=== PATIENT | male | born 1990 | race Caucasian/White ===

== ENCOUNTER 2016-11-03 10:59 | Inpatient (IN) | payer MEDICARE, OTHER ==
[~2016-11-03] VITALS: Ht 172.7 cm; Wt 59.0 kg
[~2016-11-03 10:59] MED LIST: AMITRIPTYLINE25 MG ORAL; COMPAZINE25 MG RECTAL; NORCO 5-325 TA1 EACH ORAL; SEROQUEL200 MG ORAL; ZANTAC150 MG ORAL; ZOFRAN4 M3 ORAL; ZOFRAN4 MG ORAL
[2016-11-03] MEDS ORDERED: Dextrose 5%/Lactated Ringer's 1,000 ML IV SCH (11:30)
[2016-11-03 11:40] VITALS: BP 149/76
[2016-11-03 11:54] LABS: MEAN CORPUSCULAR HEMOGLOBIN 30.6 PG (27.0-31.0); MEAN CORPUSCULAR HGB CONC 33.6 G/DL (32.0-36.0); MEAN CORPUSCULAR VOLUME 91 FL (80-99); MEAN PLATELET VOLUME 7.9 FL (6.5-10.1); PLATELET COUNT 293 K/UL (150-450); RED BLOOD COUNT 5.58 M/UL (4.70-6.10); RED CELL DISTRIBUTION WIDTH 11.5 % (11.6-14.8); WHITE BLOOD COUNT 12.7 K/UL (4.8-10.8)
[2016-11-03] MEDS ORDERED: DiphenhydrAMINE 50mg/ml Inj IVP ONE (12:00)
[2016-11-03] MEDS ORDERED: Haloperidol 5mg/ml Inj IM ONE (12:00)
[2016-11-03 12:06] LABS: ALANINE AMINOTRANSFERASE 27 U/L (3-41); ALBUMIN/GLOBULIN RATIO 1.6 (1.0-2.7); ANION GAP 20 (5-15); ASPARTATE AMINO TRANSFERASE 23 U/L (5-40); CALCIUM 10.1 mg/dL (8.6-10.2); CARBON DIOXIDE 21 mEQ/L (20-30); CHLORIDE 102 mEQ/L (98-107); CREATININE 1.1 mg/dL (0.7-1.2); GLOMERULAR FILTRATION RATE > 60 mL/min (>60); HEMOLYSIS 7; LIPASE 8 U/L (< 60); POTASSIUM 4.2 mEQ/L (3.4-4.9); SODIUM 143 mEQ/L (135-145); TOTAL PROTEIN 8.3 g/dL (6.6-8.7)
--- NOTE | 2016-11-03 12:19 | Emergency Room Report ---
History of Present Illness General Chief Complaint: Abdominal Pain Source: Patient Present Illness HPI Patient is a 25-year-old male who presented after increased generalized abdominal pain and vomiting. Patient had prior history of cyclic vomiting syndrome. Patient states that he smokes marijuana regularly. He reports having increased vomiting and abdominal pain which is relieved by warm showers. The patient states that he takes [place] for pain as well as Zofran but had run out of his medications. Patient states is not currently followed by Dr. He reportedly takes Seroquel. Allergies: Coded Allergies: No Known Allergies (Unverified , 05/31/13) Patient History Past Medical History: see triage record Reviewed Nursing Documentation: PMH: Agreed, PSxH: Agreed Nursing Documentation-PMH Past Medical History: No History, Except For Hx Cardiac Problems: No Hx Hypertension: No Hx Pacemaker: No Hx Asthma: No Hx COPD: No Hx Diabetes: No Hx Cancer: No Hx Gastrointestinal Problems: Yes - ulcer, gallbaldder removed Hx Dialysis: No Hx Neurological Problems: No Hx Cerebrovascular Accident: No Hx Seizures: No Hx Head Trauma: Yes Review of Systems All Other Systems: negative except mentioned in HPI Physical Exam Vital Signs Date Time Temp Pulse Resp B/P Pulse Ox O2 Delivery O2 Flow Rate FiO2 11/03/16 11:13 98.2 79 18 149/76 99 Room Air Sp02 EP Interpretation: reviewed, normal General Appearance: normal inspection, alert, GCS 15, thin, Chronically Ill Head: atraumatic ENT: normal ENT inspection, hearing grossly normal, normal voice Neck: normal inspection, full range of motion, supple, no bony tend Respiratory: normal inspection, lungs clear, normal breath sounds, no respiratory distress, no retraction, no wheezing Cardiovascular #1: regular rate, rhythm, no edema Gastrointestinal: normal inspection, normal bowel sounds, non tender, soft, no guarding, no hernia Genitourinary: no CVA tenderness Musculoskeletal: normal inspection, back normal, normal range of motion Neurologic: normal inspection, alert, oriented x3, responsive, head waiter III-XII nml as tested, speech normal Psychiatric: normal inspection, judgement/insight normal, mood/affect normal Skin: normal inspection, normal color, no rash Medical Decision Making Diagnostic Impression: Primary Impression: Cyclical vomiting syndrome Additional Impression: Dehydration ER Course Patient presented for abdominal pain. Differential diagnoses included ischemic bowel, appendicitis, perforated viscus, abdominal aortic aneurysm, inferior myocardial infarction, viral gastroenteritis Because of complexity of patient's case laboratory testing and imaging studies were ordered.The patient was noted to have signs of dehydration or started on IV fluids. Laboratory testing showed normal white blood count as well as elevated BUN creatinine. The patient was given IM Haldol for presumed marijuana hyperemesis syndrome. The patient was given IV fluids to rehydrate. Family requested nursing home social worker consult. The patient was noted to have persistent nausea. The patient was given IV acid blockers.Dr. upton was contacted for inpatient management because of continued pain vomiting Labs Test 11/03/16 11:30 White Blood Count 12.7 K/UL (4.8-10.8) Red Blood Count 5.58 M/UL (4.70-6.10) Hemoglobin 17.1 G/DL (14.2-18.0) Hematocrit 50.8 % (42.0-52.0) Mean Corpuscular Volume 91 FL (80-99) Mean Corpuscular Hemoglobin 30.6 PG (27.0-31.0) Mean Corpuscular Hemoglobin Concent 33.6 G/DL (32.0-36.0) Red Cell Distribution Width 11.5 % (11.6-14.8) Platelet Count 293 K/UL (150-450) Mean Platelet Volume 7.9 FL (6.5-10.1) Neutrophils (%) (Auto) % (45.0-75.0) Lymphocytes (%) (Auto) % (20.0-45.0) Monocytes (%) (Auto) % (1.0-10.0) Eosinophils (%) (Auto) % (0.0-3.0) Basophils (%) (Auto) % (0.0-2.0) Differential Total Cells Counted 100 Neutrophils % (Manual) 92 % (45-75) Lymphocytes % (Manual) 7 % (20-45) Monocytes % (Manual) 1 % (1-10) Eosinophils % (Manual) 0 % (0-3) Basophils % (Manual) 0 % (0-2) Band Neutrophils 0 % (0-8) Platelet Estimate Adequate Platelet Morphology Normal Red Blood Cell Morphology Normal Sodium Level 143 mEQ/L (135-145) Potassium Level 4.2 mEQ/L (3.4-4.9) Chloride Level 102 mEQ/L (98-107) Carbon Dioxide Level 21 mEQ/L (20-30) Anion Gap 20 (5-15) Blood Urea Nitrogen 25 mg/dL (7-23) Creatinine 1.1 mg/dL (0.7-1.2) Estimat Glomerular Filtration Rate > 60 mL/min (>60) Glucose Level 133 mg/dL (74-106) Calcium Level 10.1 mg/dL (8.6-10.2) Total Bilirubin 0.5 mg/dL (0.0-1.2) Aspartate Amino Transf (AST/SGOT) 23 U/L (5-40) Alanine Aminotransferase (ALT/SGPT) 27 U/L (3-41) Alkaline Phosphatase 63 U/L (40-129) Total Protein 8.3 g/dL (6.6-8.7) Albumin 5.2 g/dL (3.5-5.2) Globulin 3.1 g/dL Albumin/Globulin Ratio 1.6 (1.0-2.7) Lipase 8 U/L (< 60) Last Vital Signs Date Time Temp Pulse Resp B/P Pulse Ox O2 Delivery O2 Flow Rate FiO2 11/03/16 11:13 98.2 79 18 149/76 99 Room Air Status: unchanged Disposition: ADMITTED INPATIENT Condition: Serious Referrals: NOT CHOSEN IPA/,REFERRING (PCP) Moy Ac Nov 03, 2016 12:19
[2016-11-03 12:20] LABS: BAND NEUTROPHILS % (MANUAL) 0 % (0-8); BASOPHILS % (MANUAL) 0 % (0-2); EOSINOPHILS % (MANUAL) 0 % (0-3); LYMPHOCYTES % (MANUAL) 7 % (20-45); NEUTROPHILS % (MANUAL) 92 % (45-75); PLATELET ESTIMATE ADEQUATE; PLATELET MORPHOLOGY NORMAL; TOTAL CELLS COUNTED 100
[2016-11-03 13:19] VITALS: BP 139/86
[2016-11-03] MEDS ORDERED: Famotidine 20 MG/ 2ML VIAL IVP ONE (14:00)
--- NOTE | 2016-11-03 14:47 | Diagnostic Imaging Report ---
Indication:Abdominal pain Technique: Grayscale and duplex Doppler imaging of the abdomen performed. Comparison: None Findings: The liver, demonstrated part of the pancreas, aorta and IVC, both kidneys, spleen appear unremarkable. Gallbladder is absent. CBD is 8 mm. There is no biliary ductal dilatation identified. Doppler evaluation of the main portal vein shows patency. There is no ascites. No hydronephrosis seen. Impression: No acute findings. Status post cholecystectomy
[2016-11-03] MEDS ORDERED: Mylanta II UD 30ml ORAL PRN ×2 (15:00→17:15)
[2016-11-03] MEDS ORDERED: Nitroglycerin Subl 0.4mg tab (Bottle Of 25) SL PRN ×2 (15:00→17:15)
[2016-11-03] MEDS ORDERED: Morphine Sulfate 2mg/ml Inj IVP PRN ×2 (15:00→17:15)
[2016-11-03] MEDS ORDERED: Miralax 17gm pkt ORAL PRN ×2 (15:00→17:15)
[2016-11-03 15:05] VITALS: BP 146/82
[2016-11-03 16:13] VITALS: BP 137/84
[2016-11-03 17:11] LABS: APPEARANCE,URINE CLEAR; KETONES,URINE 3+ (NEGATIVE); LEUKOCYTE ESTERASE ,URINE NEGATIVE (NEGATIVE); NITRITE,URINE NEGATIVE (NEGATIVE); PH,URINE 6 (4.5-8.0); PROTEIN,URINE 2+ (NEGATIVE); UROBILINOGEN,URINE NORMAL MG/DL (0.0-1.0)
[2016-11-03 17:30] VITALS: BP 144/98
[2016-11-03 17:34] LABS: AMORPHOUS SEDIMENT,UR FEW /LPF; BACTERIA,URINE MODERATE /HPF; RBC,URINE 0-2 /HPF (0 - 0)
[2016-11-03] MEDS ORDERED: D5 1/2NS 1,000 ML IV SCH (17:40)
--- NOTE | 2016-11-03 18:06 | History and Physical ---
History of Present Illness General Date patient seen: Nov 03, 2016 Reason for Hospitalization: Abdominal Pain Present Illness HPI 25-year-old male with psychiatric disorder and cyclic vomiting syndrome presented with complains of increased generalized abdominal pain and vomiting. Patient states that he smokes marijuana regularly. He reports having increased vomiting and abdominal pain which is relieved by warm showers. The patient states that he takes [place] for pain as well as Zofran but had run out of his medications. Pt is admitted since he cant take anything by mouth Allergies: Coded Allergies: No Known Allergies (Unverified , 05/31/13) Medication History Scheduled Amitriptyline HCl (Elavil*), 25 MG ORAL BEDTIME Prochlorperazine (Prochlorperazine), 25 MG RECTAL EVERY 12 HOURS Quetiapine Fumarate* (Seroquel*), 300 MG ORAL HS, (Reported) Ranitidine Hcl* (Zantac*), 150 MG ORAL TWICE A DAY Scheduled PRN Hydrocodone Bit/Acetaminophen 5-325* ([place] 5-325*), 1 TAB ORAL Q6H PRN for For Pain Ondansetron (Zofran), 4 MG ORAL Q8H PRN for Nausea & Vomiting Ondansetron* (Zofran*), 4 MG ORAL Q6H PRN for Nausea & Vomiting Patient History Healthcare decision maker Resuscitation status Advanced Directive on File Past Medical/Surgical History Past Medical/Surgical History: (1) Bipolar disorder (2) Cyclical vomiting syndrome Review of Systems All Other Systems: negative except mentioned in HPI Physical Exam General Appearance: WD/WN Lines, tubes and drains: peripheral, central line HEENT: normocephalic, anicteric Neck: non-tender, supple Respiratory/Chest: chest wall non-tender, lungs clear Abdomen: normal bowel sounds, non tender Genitourinary/Rectal: normal genital exam, heme negative stool Extremities: normal range of motion, non-tender Skin Exam: warm/dry Last 24 Hour Vital Signs Date Time Temp Pulse Resp B/P Pulse Ox O2 Delivery O2 Flow Rate FiO2 11/03/16 16:51 97.8 60 18 137/84 99 Room Air 59 11/03/16 16:13 97.8 59 18 137/84 99 Room Air 11/03/16 15:05 98.0 60 22 146/82 97 Room Air 11/03/16 13:19 55 18 139/86 99 Room Air 11/03/16 11:40 98.2 18 149/76 99 Room Air 11/03/16 11:13 98.2 79 18 149/76 99 Room Air Laboratory Tests Test 11/03/16 11:30 11/03/16 15:33 White Blood Count 12.7 K/UL (4.8-10.8) H Red Blood Count 5.58 M/UL (4.70-6.10) Hemoglobin 17.1 G/DL (14.2-18.0) Hematocrit 50.8 % (42.0-52.0) Mean Corpuscular Volume 91 FL (80-99) Mean Corpuscular Hemoglobin 30.6 PG (27.0-31.0) Mean Corpuscular Hemoglobin Concent 33.6 G/DL (32.0-36.0) Red Cell Distribution Width 11.5 % (11.6-14.8) L Platelet Count 293 K/UL (150-450) Mean Platelet Volume 7.9 FL (6.5-10.1) Neutrophils (%) (Auto) % (45.0-75.0) Lymphocytes (%) (Auto) % (20.0-45.0) Monocytes (%) (Auto) % (1.0-10.0) Eosinophils (%) (Auto) % (0.0-3.0) Basophils (%) (Auto) % (0.0-2.0) Differential Total Cells Counted 100 Neutrophils % (Manual) 92 % (45-75) H Lymphocytes % (Manual) 7 % (20-45) L Monocytes % (Manual) 1 % (1-10) Eosinophils % (Manual) 0 % (0-3) Basophils % (Manual) 0 % (0-2) Band Neutrophils 0 % (0-8) Platelet Estimate Adequate Platelet Morphology Normal Red Blood Cell Morphology Normal Sodium Level 143 mEQ/L (135-145) Potassium Level 4.2 mEQ/L (3.4-4.9) Chloride Level 102 mEQ/L (98-107) Carbon Dioxide Level 21 mEQ/L (20-30) Anion Gap 20 (5-15) H Blood Urea Nitrogen 25 mg/dL (7-23) H Creatinine 1.1 mg/dL (0.7-1.2) Estimat Glomerular Filtration Rate > 60 mL/min (>60) Glucose Level 133 mg/dL (74-106) H Calcium Level 10.1 mg/dL (8.6-10.2) Total Bilirubin 0.5 mg/dL (0.0-1.2) Aspartate Amino Transf (AST/SGOT) 23 U/L (5-40) Alanine Aminotransferase (ALT/SGPT) 27 U/L (3-41) Alkaline Phosphatase 63 U/L (40-129) Total Protein 8.3 g/dL (6.6-8.7) Albumin 5.2 g/dL (3.5-5.2) Globulin 3.1 g/dL Albumin/Globulin Ratio 1.6 (1.0-2.7) Lipase 8 U/L (< 60) Urine Color Yellow Urine Appearance Clear Urine pH 6 (4.5-8.0) Urine Specific [place] 1.025 (1.005-1.035) Urine Protein 2+ (NEGATIVE) H Urine Glucose (UA) Negative (NEGATIVE) Urine Ketones 3+ (NEGATIVE) H Urine Occult Blood Negative (NEGATIVE) Urine Nitrite Negative (NEGATIVE) Urine Bilirubin Negative (NEGATIVE) Urine Urobilinogen Normal MG/DL (0.0-1.0) Urine Leukocyte Esterase Negative (NEGATIVE) Urine RBC 0-2 /HPF (0 - 0) H Urine WBC 2-4 /HPF (0 - 0) Urine Squamous Epithelial Cells None /LPF (NONE/OCC) Urine Amorphous Sediment Few /LPF (NONE) H Urine Bacteria Moderate /HPF (NONE) H Urine Opiates Screen Negative (NEGATIVE) Urine Barbiturates Screen Negative (NEGATIVE) Phencyclidine (PCP) Screen Negative (NEGATIVE) Urine Amphetamines Screen Positive (NEGATIVE) H Urine Benzodiazepines Screen Negative (NEGATIVE) Urine Cocaine Screen Negative (NEGATIVE) Urine Marijuana (THC) Screen Positive (NEGATIVE) H Height (Feet): 5 Height (Inches): 8.00 Weight (Pounds): 130 Medications Current Medications Medications (Trade) Dose Ordered Sig/Adi Route PRN Reason Start Time Stop Time Status Last Admin Dose Admin Acetaminophen (Tylenol) 650 mg Q4H PRN ORAL fever 11/03/16 17:15 2 14:59 UNV Al Hydroxide/Mg Hydroxide (Mylanta II) 30 ml Q6H PRN ORAL dyspepsia 11/03/16 17:15 12/03/16 14:59 UNV Amitriptyline HCl (Elavil) 25 mg BEDTIME ORAL 11/03/16 21:00 12/03/16 20:59 UNV Dextrose (Dextrose 50%) STAT PRN IV Hypoglycemia 11/03/16 17:15 12/03/16 14:59 UNV Dextrose/Lactated Ringer's (D5lr) 1,000 ml @ 125 mls/hr Q8H IV 11/03/16 11:30 12/03/16 11:29 11/03/16 11:46 Dextrose/Sodium Chloride (D5 0.45% NS) 1,000 ml @ 75 mls/hr [id number] IV 11/03/16 17:45 12/03/16 17:39 UNV Diphenhydramine HCl (Benadryl) 25 mg Q6H PRN ORAL Itching/Pruritis 11/03/16 17:15 12/03/16 14:59 UNV Heparin Sodium (Porcine) (Heparin 5000 units/ml) 5,000 units EVERY 12 HOURS SUBQ 11/03/16 21:00 12/03/16 20:59 UNV Morphine Sulfate (Morphine Sulfate) 2 mg EVERY 4 HOURS PRN IVP severe Pain (Pain Scale 7-10) 11/03/16 17:15 11/10/16 14:59 UNV Nitroglycerin 0.4 mg 0.4 mg Q5M X 3 DOSES PRN SL Prn Chest Pain 11/03/16 17:15 12/03/16 14:59 UNV Ondansetron HCl (Zofran) 4 mg Q6H PRN IVP Nausea & Vomiting 11/03/16 17:15 12/03/16 14:59 UNV Polyethylene Glycol (Miralax) 17 gm HSPRN PRN ORAL Constipation 11/03/16 17:15 12/03/16 14:59 UNV Prochlorperazine (Compazine) 25 mg EVERY 12 HOURS RECTAL 11/03/16 21:00 12/03/16 20:59 UNV Quetiapine Fumarate (SEROquel) 300 mg DAILY ORAL 11/04/16 09:00 12/04/16 08:59 UNV Ranitidine HCl (Zantac) 150 mg TWICE A DAY ORAL 11/03/16 18:00 12/03/16 17:59 UNV Temazepam (Restoril) 15 mg HSPRN PRN ORAL Insomnia 11/03/16 17:15 11/10/16 14:59 UNV Assessment/Plan Problem List: (1) Intractable vomiting ICD Codes: R11.10 - Vomiting, unspecified SNOMED: 192802791 (2) Cyclical vomiting syndrome ICD Codes: G43.A0 - Cyclical vomiting syndrome SNOMED: 75795922 (3) Bipolar disorder ICD Codes: F31.9 - Bipolar disorder, unspecified SNOMED: 43679144 (4) ARF (acute renal failure) ICD Codes: N17.9 - ARF (acute renal failure) SNOMED: 18069721 (5) Leukocytosis ICD Codes: D72.829 - Elevated white blood cell count, unspecified SNOMED: 973178589 Assessment/Plan NPO IV fluids symptomatic treatment GI evaluation check bun/creatinine ELHAM NEWMAN Nov 03, 2016 18:06
[2016-11-03] MEDS ORDERED: HYDROmorphone 2 MG in NS 50 ML IVPB PRN (18:15)
[2016-11-03] MEDS: D5 1/2NS 1,000 ML IV SCH (19:31)
[2016-11-03 20:00] VITALS: BP 138/70
[2016-11-03] MEDS ORDERED: Heparin 5000 units/ml inj SUBQ SCH (21:00)
[2016-11-03] MEDS: Heparin 5000 units/ml inj SUBQ SCH (21:05)
[2016-11-04] VITALS: BP_SYST 100; BP_SYST 101; BP_DIAS 56; BP_DIAS 58
[2016-11-04] MEDS: HYDROmorphone 2 MG in D5W 50 ML IVPB PRN ×2 (03:43→18:08)
[2016-11-04 04:00] VITALS: BP 102/55
[2016-11-04 07:17] LABS: EOSINOPHILS % (AUTO) 0.8 % (0.0-3.0); LYMPHOCYTES % (AUTO) 32.1 % (20.0-45.0); MEAN CORPUSCULAR HEMOGLOBIN 30.9 PG (27.0-31.0); MEAN CORPUSCULAR HGB CONC 32.4 G/DL (32.0-36.0); MEAN CORPUSCULAR VOLUME 95 FL (80-99); MEAN PLATELET VOLUME 8.2 FL (6.5-10.1); PLATELET COUNT 214 K/UL (150-450); RED BLOOD COUNT 4.79 M/UL (4.70-6.10); WHITE BLOOD COUNT 9.3 K/UL (4.8-10.8)
[2016-11-04 07:27] LABS: ALANINE AMINOTRANSFERASE 21 U/L (3-41); ALBUMIN/GLOBULIN RATIO 1.5 (1.0-2.7); ANION GAP 12 (5-15); ASPARTATE AMINO TRANSFERASE 25 U/L (5-40); CALCIUM 9.4 mg/dL (8.6-10.2); CARBON DIOXIDE 29 mEQ/L (20-30); CHLORIDE 101 mEQ/L (98-107); GLOMERULAR FILTRATION RATE > 60 mL/min (>60); HEMOLYSIS 9; PHOSPHORUS 3.5 mg/dL (2.5-4.8); POTASSIUM 4.3 mEQ/L (3.4-4.9); SODIUM 142 mEQ/L (135-145)
[2016-11-04 08:00] VITALS: BP 106/62
[2016-11-04] MEDS ORDERED: QUEtiapine 200mg tab ORAL SCH (09:00)
[2016-11-04] MEDS: D5 1/2NS 1,000 ML IV SCH ×2 (09:00→17:00)
[2016-11-04] MEDS: Heparin 5000 units/ml inj SUBQ SCH ×2 (10:14→20:34)
[2016-11-04 12:00] VITALS: BP 104/56
--- NOTE | 2016-11-04 15:54 | GI Initial Consult Note ---
History of Present Illness General Date patient seen: Nov 04, 2016 Time patient seen: 10:00 Reason for Hospitalization: Abdominal Pain Referring physician: ELHAM HUI Reason for Consultation: CYCLIC VOMITTING Present Illness HPI Patient is a 25-year-old male who presented after increased generalized abdominal pain and vomiting. Patient had prior history of cyclic vomiting syndrome. Patient states that he smokes marijuana regularly. He reports having increased vomiting and abdominal pain which is relieved by warm showers. The patient states that he takes [place] for pain as well as Zofran but had run out of his medications. Patient states is not currently followed by Dr. He reportedly takes Seroquel. GI NOTE: HPI as noted above. Pt seen on floor, awake A&Ox4, NAD. No active N/ V noted at this time. Pt appears drowsy from pain medication. No current GI complaints at this time. The patient states he wants to eat. He presents with positive urine tox for marijuana and amphetamines. CBC, CMP unremarkable. Abdominal U/S negative. Home Meds Active Scripts Ranitidine Hcl* (ZANTAC*) 150 Mg Tablet, 150 MG ORAL TWICE A DAY, #30 TAB Prov:Bella Allen NP ([facility]) 03/02/15 Hydrocodone Bit/Acetaminophen 5-325* ([place] 5-325*) 1 Each Tablet, 1 TAB ORAL Q6H Y for For Pain, #20 TAB 0 Refills Prov:Bella Allen NP (Vanchtein) 11/20/14 Prochlorperazine (Prochlorperazine) 25 Mg Supp, 25 MG RECTAL EVERY 12 HOURS, # 30 SUPP Prov:Bella Allen NP ([facility]anchtein) 10/20/14 Ondansetron* (ZOFRAN*) 4 Mg Tablet, 4 MG ORAL Q6H Y for Nausea & Vomiting, #60 TAB Prov:Bella Allen NP ([facility]te[facility]) 10/20/14 Amitriptyline HCl (ELAVIL*) 25 Mg Tab, 25 MG ORAL BEDTIME, #30 TAB Prov:ELHAM NEWMAN 10/18/14 Ondansetron (Zofran) 4 Mg Tab, 4 MG ORAL Q8H Y for Nausea & Vomiting, #10 TAB 0 Refills Prov:ELHAM NEWMAN 10/18/14 Reported Medications Quetiapine Fumarate* (SEROQUEL*) 200 Mg Tablet, 300 MG ORAL HS, TAB 05/31/13 Med list reviewed/reconciled: Yes Allergies: Coded Allergies: No Known Allergies (Unverified , 05/31/13) Patient History History Provided By: Patient, Medical Record PMH Narrative Past Medical History: No History, Except For Hx Cardiac Problems: No Hx Hypertension: No Hx Pacemaker: No Hx Asthma: No Hx COPD: No Hx Diabetes: No Hx Cancer: No Hx Gastrointestinal Problems: Yes - ulcer, gallbladder removed Hx Dialysis: No Hx Neurological Problems: No Hx Cerebrovascular Accident: No Hx Seizures: No Hx Head Trauma: Yes Social History: Reports: drug use Review of Systems All Other Systems: negative except mentioned in HPI Physical Exam Vital Signs Date Time Temp Pulse Resp B/P Pulse Ox O2 Delivery O2 Flow Rate FiO2 11/03/16 11:13 98.2 79 18 149/76 99 Room Air Sp02 EP Interpretation: reviewed Labs Laboratory Tests Test 11/04/16 04:50 White Blood Count 9.3 K/UL (4.8-10.8) Red Blood Count 4.79 M/UL (4.70-6.10) Hemoglobin 14.8 G/DL (14.2-18.0) Hematocrit 45.6 % (42.0-52.0) Mean Corpuscular Volume 95 FL (80-99) Mean Corpuscular Hemoglobin 30.9 PG (27.0-31.0) Mean Corpuscular Hemoglobin Concent 32.4 G/DL (32.0-36.0) Red Cell Distribution Width 12.0 % (11.6-14.8) Platelet Count 214 K/UL (150-450) Mean Platelet Volume 8.2 FL (6.5-10.1) Neutrophils (%) (Auto) 55.0 % (45.0-75.0) Lymphocytes (%) (Auto) 32.1 % (20.0-45.0) Monocytes (%) (Auto) 11.0 % (1.0-10.0) H Eosinophils (%) (Auto) 0.8 % (0.0-3.0) Basophils (%) (Auto) 1.0 % (0.0-2.0) Sodium Level 142 mEQ/L (135-145) Potassium Level 4.3 mEQ/L (3.4-4.9) Chloride Level 101 mEQ/L (98-107) Carbon Dioxide Level 29 mEQ/L (20-30) Anion Gap 12 (5-15) Blood Urea Nitrogen 20 mg/dL (7-23) Creatinine 1.0 mg/dL (0.7-1.2) Estimat Glomerular Filtration Rate > 60 mL/min (>60) Glucose Level 93 mg/dL (74-106) Calcium Level 9.4 mg/dL (8.6-10.2) Phosphorus Level 3.5 mg/dL (2.5-4.8) Magnesium Level 2.0 mg/dL (1.7-2.5) Total Bilirubin 0.8 mg/dL (0.0-1.2) Aspartate Amino Transf (AST/SGOT) 25 U/L (5-40) Alanine Aminotransferase (ALT/SGPT) 21 U/L (3-41) Alkaline Phosphatase 51 U/L (40-129) Total Protein 7.0 g/dL (6.6-8.7) Albumin 4.2 g/dL (3.5-5.2) Globulin 2.8 g/dL Albumin/Globulin Ratio 1.5 (1.0-2.7) General Appearance: well appearing, no apparent distress, alert, thin Head: normocephalic EENT: normal ENT inspection Neck: supple Respiratory: normal breath sounds, no respiratory distress Cardiovascular: normal rate Gastrointestinal: normal inspection, non tender, soft, normal bowel sounds Rectal: deferred Musculoskeletal: back normal Neurologic: alert, oriented x3, responsive Psychiatric: normal inspection, judgement/insight normal Skin: normal inspection, normal color, no rash, warm/dry Lymphatic: normal inspection, no adenopathy Current Medications Current Medications Medications (Trade) Dose Ordered Sig/Adi Route PRN Reason Start Time Stop Time Status Last Admin Dose Admin Acetaminophen (Tylenol) 650 mg Q4H PRN ORAL fever 11/03/16 17:15 12/03/16 14:59 Al Hydroxide/Mg Hydroxide (Mylanta II) 30 ml Q6H PRN ORAL dyspepsia 11/03/16 17:15 12/03/16 14:59 Amitriptyline HCl (Elavil) 25 mg BEDTIME ORAL 11/03/16 21:00 12/03/16 20:59 11/03/16 21:05 Dextrose (Dextrose 50%) STAT PRN IV Hypoglycemia 11/03/16 17:15 12/03/16 14:59 Dextrose/Sodium Chloride (D5 0.45% NS) 1,000 ml @ 75 mls/hr [id number] IV 11/03/16 19:00 12/03/16 18:59 11/04/16 09:00 Diphenhydramine HCl (Benadryl) 25 mg Q6H PRN ORAL Itching/Pruritis 11/03/16 17:15 12/03/16 14:59 Heparin Sodium (Porcine) (Heparin 5000 units/ml) 5,000 units EVERY 12 HOURS SUBQ 11/03/16 21:00 12/03/16 20:59 11/04/16 10:14 Hydromorphone HCl/ Dextrose (Dilaudid/D5W 50ml) 51 ml @ 200 mls/hr Q3H PRN IVPB pain 7-10 11/03/16 23:00 11/10/16 22:59 11/04/16 03:43 Nitroglycerin 0.4 mg 0.4 mg Q5M X 3 DOSES PRN SL Prn Chest Pain 11/03/16 17:15 12/03/16 14:59 Ondansetron HCl (Zofran) 4 mg Q6H PRN IVP Nausea & Vomiting 11/03/16 17:15 12/03/16 14:59 11/03/16 19:19 Polyethylene Glycol (Miralax) 17 gm HSPRN PRN ORAL Constipation 11/03/16 17:15 12/03/16 14:59 Prochlorperazine (Compazine) 25 mg EVERY 12 HOURS PRN RECTAL Nausea & Vomiting 11/03/16 21:00 12/03/16 20:59 Quetiapine Fumarate (SEROquel) 300 mg DAILY ORAL 11/04/16 09:00 12/04/16 08:59 11/04/16 09:53 Ranitidine HCl (Zantac) 150 mg TWICE A DAY ORAL 11/03/16 18:00 12/03/16 17:59 11/04/16 09:54 Temazepam 15 mg 15 mg HSPRN PRN ORAL Insomnia 11/03/16 17:15 11/10/16 14:59 GI: Plan Problems: (1) Bipolar disorder (2) Cyclical vomiting syndrome (3) Nausea, vomiting, and diarrhea (4) Drug abuse Plan symptomatic treatment at this time adv to regular diet zofran prn abdominal U/S negative urine tox >> positive for amp and MJ H2 fu labs Discussed with Dr. Chicas. Thank you for referring this patient, we will follow. Melissa Barney N.P. Nov 04, 2016 15:54
[2016-11-04 16:33] VITALS: BP 94/49
[2016-11-04] MEDS ORDERED: D5 1/2NS 1000ml IV ONE (18:37)
[2016-11-04] MEDS ORDERED: Tubing IV Secondary IV ONE (18:37)
[2016-11-04 20:00] VITALS: BP 135/69
[2016-11-05] VITALS: BP 102/62
[2016-11-05] MEDS: HYDROmorphone 2 MG in D5W 50 ML IVPB PRN (01:19)
[2016-11-05 04:00] VITALS: BP 103/66
[2016-11-05] MEDS: D5 1/2NS 1,000 ML IV SCH (06:30)
[2016-11-05 08:00] VITALS: BP 102/56
[2016-11-05] MEDS: Heparin 5000 units/ml inj SUBQ SCH (09:01)
[2016-11-05] MEDS ORDERED: RESTORIL15 MG ORAL (11:40)
[2016-11-05 12:00] VITALS: BP 102/60
--- NOTE | 2016-11-05 14:58 | GI Progress Note ---
Assessment/Plan Problems: (1) Intractable vomiting ICD Codes: R11.10 - Vomiting, unspecified SNOMED: 389929073 (2) Bipolar disorder ICD Codes: F31.9 - Bipolar disorder, unspecified SNOMED: 16390773 (3) Drug abuse ICD Codes: F19.10 - Other psychoactive substance abuse, uncomplicated SNOMED: 46846552 (4) Cyclical vomiting syndrome ICD Codes: G43.A0 - Cyclical vomiting syndrome SNOMED: 85696944 (5) Abdominal pain ICD Codes: R10.9 - Unspecified abdominal pain SNOMED: 02576913 Status: stable Status Narrative Discussed with Dr. Chicas. Assessment/Plan regular diet, tolerating abdominal U/S negative urine tox >> positive for amp and MJ ok for DC per GI standpoint pt education, drug avoidance symptomatic treatment at this time zofran prn H2 fu labs Subjective Gastrointestinal/Abdominal: Reports: no symptoms Subjective feels better Objective Last 24 Hour Vital Signs Date Time Temp Pulse Resp B/P Pulse Ox O2 Delivery O2 Flow Rate FiO2 11/05/16 12:00 97.5 72 18 102/60 100 Room Air 11/05/16 08:00 97.7 72 18 102/56 100 Room Air 11/05/16 04:00 97.0 45 16 103/66 100 Room Air 11/05/16 01:49 97.7 11/05/16 00:00 97.7 45 16 102/62 100 Room Air 11/04/16 20:00 98.2 94 20 135/69 95 Room Air 11/04/16 16:33 97.4 57 20 94/49 95 Room Air Intake and Output 11/04/16 11/05/16 19:00 07:00 Intake Total 2450 ml 1300 ml Balance 2450 ml 1300 ml Intake Oral 840 ml IV Total 1610 ml 1300 ml # Voids 4 3 Height (Feet): 5 Height (Inches): 8.00 Weight (Pounds): 130 General Appearance: no apparent distress, alert, thin Cardiovascular: normal rate Respiratory/Chest: normal breath sounds, no respiratory distress Abdominal Exam: normal bowel sounds, non tender, soft Extremities: normal range of motion Melissa Barney N.P. Nov 05, 2016 14:57
--- NOTE | 2016-11-05 15:52 | Diagnostic Imaging Report ---
Indications: Abdominal pain Technique: Transabdominal real-time grayscale and duplex Doppler imaging of the upper abdomen and retroperitoneum was performed. Findings: Comparison: Abdominal ultrasound 11/03/2016, 07/22/2016; CT abdomen pelvis 03/29/2015, 01/10/2015, 10/12/2014. Liver normal size and surface contour, parenchymal echogenicity. No focal lesions. Gallbladder not identified. Bile ducts normal caliber. Common bile duct 6 mm. Pancreas is less portions unremarkable. Spleen unremarkable. Right kidney unremarkable. Left kidney unremarkable. Abdominal aorta, intrahepatic portion of inferior vena cava patent, normal caliber. Duplex Doppler imaging demonstrates antegrade flow in splenic, portal, hepatic veins. No ascites. IMPRESSION: Nonvisualization of gallbladder compatible with previous cholecystectomy Otherwise negative abdominal ultrasound, unchanged.
--- NOTE | 2016-11-05 19:22 | Pulmonology Progress Note ---
Assessment/Plan Problems: (1) Intractable vomiting (2) Cyclical vomiting syndrome (3) Bipolar disorder (4) ARF (acute renal failure) (5) Leukocytosis Assessment/Plan iv fluids analgesics continue psych meds GI follows Subjective Interval Events: late entery for 08/04. still nausea, eating clear liquid Constitutional: Reports: no symptoms HEENT: Repors: no symptoms Allergies: Coded Allergies: No Known Allergies (Unverified , 05/31/13) Objective Last 24 Hour Vital Signs Date Time Temp Pulse Resp B/P Pulse Ox O2 Delivery O2 Flow Rate FiO2 11/05/16 12:00 97.5 72 18 102/60 100 Room Air 11/05/16 08:00 97.7 72 18 102/56 100 Room Air 11/05/16 04:00 97.0 45 16 103/66 100 Room Air 11/05/16 01:49 97.7 11/05/16 00:00 97.7 45 16 102/62 100 Room Air 11/04/16 20:00 98.2 94 20 135/69 95 Room Air Intake and Output 11/04/16 11/05/16 18:59 06:59 Intake Total 2450 ml 1300 ml Balance 2450 ml 1300 ml Intake Oral 840 ml IV Total 1610 ml 1300 ml # Voids 4 3 General Appearance: WD/WN HEENT: normocephalic, atraumatic Respiratory/Chest: chest wall non-tender, lungs clear Cardiovascular: normal peripheral pulses, normal rate, no JVD Genitourinary: normal external genitalia Extremities: no clubbing Microbiology Date/Time Source Procedure Growth Status 11/03/16 15:33 Urine,Clean Catch Urine Culture - Preliminary NO GROWTH AFTER 24 HOURS Resulted ELHAM NEWMAN Nov 05, 2016 19:22
--- NOTE | 2016-11-05 19:23 | Pulmonology Progress Note ---
Assessment/Plan Problems: (1) Intractable vomiting (2) Cyclical vomiting syndrome (3) Bipolar disorder (4) ARF (acute renal failure) (5) Leukocytosis Assessment/Plan iv fluids analgesics continue psych meds GI follows dc home today with oral zofran Subjective ROS Limited/Unobtainable: No Interval Events: feeling better, tolerating diet Allergies: Coded Allergies: No Known Allergies (Unverified , 05/31/13) Objective Last 24 Hour Vital Signs Date Time Temp Pulse Resp B/P Pulse Ox O2 Delivery O2 Flow Rate FiO2 11/05/16 12:00 97.5 72 18 102/60 100 Room Air 11/05/16 08:00 97.7 72 18 102/56 100 Room Air 11/05/16 04:00 97.0 45 16 103/66 100 Room Air 11/05/16 01:49 97.7 11/05/16 00:00 97.7 45 16 102/62 100 Room Air 11/04/16 20:00 98.2 94 20 135/69 95 Room Air Intake and Output 11/04/16 11/05/16 18:59 06:59 Intake Total 2450 ml 1300 ml Balance 2450 ml 1300 ml Intake Oral 840 ml IV Total 1610 ml 1300 ml # Voids 4 3 General Appearance: cachetic HEENT: normocephalic, atraumatic Respiratory/Chest: chest wall non-tender, lungs clear Cardiovascular: normal peripheral pulses, normal rate Abdomen: normal bowel sounds, soft, non tender Genitourinary: normal external genitalia Extremities: no clubbing Skin: no lesions Microbiology Date/Time Source Procedure Growth Status 11/03/16 15:33 Urine,Clean Catch Urine Culture - Preliminary NO GROWTH AFTER 24 HOURS Resulted ELHAM NEWMAN Nov 05, 2016 19:23
--- NOTE | 2016-11-06 14:12 | Discharge Summary ---
Discharge Summary Hospital Course Date of Admission Nov 03, 2016 at 14:03 Date of Discharge Nov 05, 2016 at 16:30 Admitting Diagnosis cyclic vomiting,dehydration HPI Jose Elias Lackey is a 25 year old male who was admitted on Nov 03, 2016 at 14:03 for Cyclic Vomiting, Dehrydation Hospital Course [id number] Discharge Discharge Disposition Patient was discharged to Home (01) Discharge Diagnoses: Hien Baird NP Nov 06, 2016 14:12
--- NOTE | 2016-11-07 00:37 | Discharge Summary 2 SIG ---
DATE OF ADMISSION: 11/03/2016 DATE OF DISCHARGE: 11/05/2016 COAL CUTTING MACHINE OPERATOR: Gino Chicas M.D. BRIEF HOSPITAL COURSE: The patient is a 25-year-old male with psychiatric disorder and cyclic vomiting syndrome. He presented to ED with complaints of generalized abdominal pain and vomiting. He admitted to smoking marijuana regularly and reports having increased vomiting and abdominal pain, which is relieved by a warm shower. He usually takes Exira as well as Zofran, but he ran out of his medications. He was unable to take anything by mouth. On evaluation at ED, he was noted to have signs of dehydration and was started on IV fluids. Urine toxicology was positive for amphetamine and marijuana. Dr. Chicas was consulted. Abdominal ultrasound was negative. He was given H2 blockers and Zofran and was given patient education on drug avoidance. equipment services associate was called in. Diet was advanced. The patient was eventually discharged home. FINAL DIAGNOSES: 1. Intractable vomiting. 2. Cyclic vomiting syndrome. 3. Bipolar disorder. 4. Acute renal failure. 5. Dehydration. 6. Drug abuse. Marcos Mcmahon M.D. I have been assigned to dictate discharge summary on this account and I was not involved in the patient's management. Hien Baird N.P. DR: CORA JOB#: [id number] CC: GLORIA
[2016-11-09] MEDS ORDERED: ZOFRAN ODT4 MG ORAL (16:46)
[2016-11-09] MEDS ORDERED: SUPPOSITORY1 EACH RC (16:46)
== END 2016-11-05 16:30 | disposition home or self-care (01) | DRG 103 ==
LOC: EMR 11:40 → 4W 14:03 → EMR 17:01 → EDBEDREQ 17:32
DX: G43.A1 Cyclical vomiting, in migraine, intractable (principal); N17.9 Acute kidney failure, unspecified; E86.0 Dehydration; F31.9 Bipolar disorder, unspecified; F19.10 Other psychoactive substance abuse, uncomplicated
CPT/HCPCS: 36415; 76700; 80053; 80300; 81003; 83690; 83735; 84100; 85007; 85025; 87081; 87086; J2405

== ENCOUNTER 2016-11-08 16:50 | Emergency (ER) | payer MEDICARE, OTHER ==
[~2016-11-08] VITALS: Ht 172.7 cm; Wt 59.0 kg
[~2016-11-08 16:50] MED LIST changes: +RESTORIL15 MG ORAL
[2016-11-08] MEDS ORDERED: ZOFRAN ODT4 MG ORAL (17:23)
[2016-11-08] MEDS ORDERED: Metoclopramide 10mg/2ml Inj IM SCH (17:30)
--- NOTE | 2016-11-08 17:32 | Emergency Room Report ---
History of Present Illness General Chief Complaint: Abdominal Pain Source: Patient Present Illness HPI 25 YO M with recent admission Nov 03- for "cyclic vomiting syndrome" and noted Utox + for MJ and amphetamine here again for "multiple episodes of non- bilious vomiting" since drinking ETOH, and smoking MJ earlier. Patient states he "put the discharge Rx in folder" at home and didnt fill for ?reason. Denies abd pain, chest pain, SOB, headache, urinary complaints. Denies previous abd surgery or other med problems. Patient denies ever using amphetamine but review of EMR shows + amphetamine and 07/21/16. Utox + for MJ 4x in 2014 and 2x in 2016. Ultrasound abd was negative. Was cleared by GI on recent visit. Allergies: Coded Allergies: No Known Allergies (Unverified , 05/31/13) Patient History Past Medical History: none Past Surgical History: none Pertinent Family History: none Social History: Reports: alcohol use, drug use, smoking Immunizations: UTD Reviewed Nursing Documentation: PMH: Agreed, PSxH: Agreed Nursing Documentation-PMH Past Medical History: No History, Except For Hx Hypertension: No Hx Pacemaker: No Hx Asthma: No Hx COPD: No Hx Diabetes: No Hx Cancer: No Hx Gastrointestinal Problems: Yes - ulcer, gallbaldder removed Hx Dialysis: No Hx Neurological Problems: No Hx Cerebrovascular Accident: No Hx Seizures: No Hx Head Trauma: Yes Review of Systems All Other Systems: negative except mentioned in HPI Physical Exam Vital Signs Date Time Temp Pulse Resp B/P Pulse Ox O2 Delivery O2 Flow Rate FiO2 11/08/16 17:05 98.2 104 18 115/66 100 Room Air Sp02 EP Interpretation: reviewed, normal General Appearance: normal inspection, well appearing, no apparent distress, alert Head: atraumatic Eyes: bilateral eye EOMI, bilateral eye PERRL ENT: normal ENT inspection, hearing grossly normal, normal voice Neck: normal inspection, full range of motion, supple, no bony tend Respiratory: normal inspection, lungs clear, normal breath sounds, no respiratory distress, no retraction, no wheezing Cardiovascular #1: regular rate, rhythm, no edema Gastrointestinal: normal inspection, normal bowel sounds, non tender, soft, no guarding, no hernia Genitourinary: no CVA tenderness Musculoskeletal: normal inspection, back normal, normal range of motion, Hillary' s Sign negative Neurologic: normal inspection, alert, oriented x3, responsive, photocomposing machine operator III-XII nml as tested, motor strength/tone normal, speech normal Psychiatric: normal inspection, judgement/insight normal, mood/affect normal Skin: normal inspection, normal color, no rash Medical Decision Making Diagnostic Impression: Primary Impression: Cyclical vomiting syndrome Qualified Codes: G43.A0 - Cyclical vomiting, not intractable ER Course 25 YO M with ?cyclic vomiting syndrome. VSS. Afebrile. No active vomiting here. Abd is non -focal. Low suspicion for acute bacterial or surgical process. Received PO and IM anti-emetic Tolerating PO in ED Re-Rx zofran - advised patient to go straight to 24 hour pharmacy from ED DC home Last Vital Signs Date Time Temp Pulse Resp B/P Pulse Ox O2 Delivery O2 Flow Rate FiO2 11/08/16 17:05 98.2 104 18 115/66 100 Room Air Status: improved Disposition: HOME, SELF-CARE Scripts Ondansetron Odt* (ZOFRAN ODT*) 4 Mg Tab.rapdis 4 MG ORAL Q6H Y for Nausea & Vomiting, #30 TAB 0 Refills Prov: OLGA LIDIA TURNER M.D. 11/08/16 Patient Instructions: Rehydration, Adult Additional Instructions: - STOP using marijuana and other drugs - Please go to pharmacy and [facility]pler pickup prescription for zofran - Follow up with your doctor in 2-3 days OLGA LIDIA TURNER M.D. Nov 08, 2016 17:32
[2016-11-08 17:39] VITALS: BP 118/69
[2016-11-08 17:42] VITALS: BP 118/69
[2016-11-09] MEDS ORDERED: ZOFRAN ODT4 MG ORAL (16:46)
[2016-11-09] MEDS ORDERED: SUPPOSITORY1 EACH RC (16:46)
[2016-11-09] MEDS ORDERED: MELATONIN 5 MG1 EAC1 ORAL (20:38)
== END 2016-11-08 17:43 | disposition home or self-care (01) ==
LOC: EMR 17:29
DX: G43.A0 Cyclical vomiting, in migraine, not intractable (principal); F12.929 Cannabis use, unspecified with intoxication, unspecified; F17.200 Nicotine dependence, unspecified, uncomplicated; Z90.49 Acquired absence of other specified parts of digestive tract
CPT/HCPCS: 80300; 96372; 99283; J2765

== ENCOUNTER 2016-11-09 16:47 | Inpatient (IN) | payer MEDICARE, OTHER ==
[~2016-11-09] VITALS: Ht 172.7 cm; Wt 59.0 kg
[~2016-11-09 16:47] MED LIST changes: +SUPPOSITORY1 EACH RC; +ZOFRAN ODT4 MG ORAL
[2016-11-09] MEDS ORDERED: Metoclopramide 10mg/2ml Inj IVP ONE (17:15)
[2016-11-09] MEDS ORDERED: LORazepam Inj 2mg/ml 1ml IV ONE (17:15)
--- NOTE | 2016-11-09 17:17 | Emergency Room Report ---
History of Present Illness General Chief Complaint: Vomiting Source: Patient, EMS Present Illness HPI Patient was here yesterday Has also had a recent hospitalization Reports that he has a history of cyclical vomiting Patient reports increased pain and vomiting Unable to tolerate oral intake for the past 2-3 days Denies any fevers or chills Denies any chest pain denies any back or flank pain abdominal pain is diffuse / Denies any diarrhea Denies any recent trauma patient reports pain at several different hospitals including [facility] No one has been able to give a diagnosis Allergies: Coded Allergies: No Known Allergies (Unverified , 05/31/13) Patient History Past Medical History: see triage record Pertinent Family History: none Reviewed Nursing Documentation: PMH: Agreed, PSxH: Agreed Nursing Documentation-PMH Hx Hypertension: No Hx Pacemaker: No Hx Asthma: No Hx COPD: No Hx Diabetes: No Hx Cancer: No Hx Dialysis: No Hx Neurological Problems: No Hx Cerebrovascular Accident: No Hx Seizures: No Hx Head Trauma: Yes Review of Systems All Other Systems: negative except mentioned in HPI Physical Exam Vital Signs Date Time Temp Pulse Resp B/P Pulse Ox O2 Delivery O2 Flow Rate FiO2 11/09/16 16:43 87 16 146/88 100 Sp02 EP Interpretation: reviewed, normal General Appearance: mild distress - Patient is nauseated Head: normocephalic, atraumatic Eyes: bilateral eye EOMI, bilateral eye PERRL ENT: hearing grossly normal, normal pharynx, TMs + canals normal, uvula midline Neck: full range of motion, supple, no meningismus, no bony tend Respiratory: lungs clear, normal breath sounds, no rhonchi, no respiratory distress, no retraction, no accessory muscle use Cardiovascular #1: normal peripheral pulses, regular rate, rhythm, no edema, no gallop, no JVD, no murmur Gastrointestinal: normal bowel sounds, non tender - On examination however subjectively diffusely uncomfortable, , soft, no mass, no organomegaly, non- distended, no guarding, no hernia, no pulsatile mass, no rebound Genitourinary: no CVA tenderness Musculoskeletal: normal inspection Neurologic: oriented x3, responsive, mental health program specialist III-XII nml as tested, motor strength/ tone normal, sensory intact Psychiatric: mood/affect normal Skin: normal color, no rash, warm/dry, palpation normal Lymphatic: normal inspection, no adenopathy Medical Decision Making Diagnostic Impression: Primary Impression: Vomiting Additional Impressions: Cyclical vomiting syndrome Dehydration Intractable vomiting Leukocytosis ER Course Patient has had several visits to the emergency room with similar complaints Patient was attempted for outpatient workup just yesterday however he reports it is still not able to keep anything down Patient was discussed regarding IV hydration and antiemetics After further observation patient continued to be uncomfortable and requires inpatient care at this time Please note that the patient has questionable psychiatric diagnosis as well at times was walking around the emergency room Causing a threat to other patients and required restraints for a short period time Until admission for inpatient Labs Test 11/09/16 17:20 11/09/16 19:15 White Blood Count 19.5 K/UL (4.8-10.8) Red Blood Count 5.88 M/UL (4.70-6.10) Hemoglobin 18.5 G/DL (14.2-18.0) Hematocrit 50.8 % (42.0-52.0) Mean Corpuscular Volume 86 FL (80-99) Mean Corpuscular Hemoglobin 31.4 PG (27.0-31.0) Mean Corpuscular Hemoglobin Concent 36.3 G/DL (32.0-36.0) Red Cell Distribution Width 10.7 % (11.6-14.8) Platelet Count 304 K/UL (150-450) Mean Platelet Volume 8.1 FL (6.5-10.1) Neutrophils (%) (Auto) % (45.0-75.0) Lymphocytes (%) (Auto) % (20.0-45.0) Monocytes (%) (Auto) % (1.0-10.0) Eosinophils (%) (Auto) % (0.0-3.0) Basophils (%) (Auto) % (0.0-2.0) Differential Total Cells Counted 100 Neutrophils % (Manual) 75 % (45-75) Lymphocytes % (Manual) 19 % (20-45) Monocytes % (Manual) 4 % (1-10) Eosinophils % (Manual) 1 % (0-3) Basophils % (Manual) 1 % (0-2) Band Neutrophils 0 % (0-8) Platelet Estimate Adequate Platelet Morphology Normal Polychromasia 1+ Sodium Level 140 mEQ/L (135-145) Potassium Level 3.5 mEQ/L (3.4-4.9) Chloride Level 94 mEQ/L (98-107) Carbon Dioxide Level 24 mEQ/L (20-30) Anion Gap 22 (5-15) Blood Urea Nitrogen 17 mg/dL (7-23) Creatinine 1.3 mg/dL (0.7-1.2) Estimat Glomerular Filtration Rate > 60 mL/min (>60) Glucose Level 131 mg/dL (74-106) Calcium Level 10.9 mg/dL (8.6-10.2) Lipase 11 U/L (< 60) Urine Opiates Screen Negative (NEGATIVE) Urine Barbiturates Screen Negative (NEGATIVE) Phencyclidine (PCP) Screen Negative (NEGATIVE) Urine Amphetamines Screen Negative (NEGATIVE) Urine Benzodiazepines Screen Negative (NEGATIVE) Urine Cocaine Screen Negative (NEGATIVE) Urine Marijuana (THC) Screen Positive (NEGATIVE) Last Vital Signs Date Time Temp Pulse Resp B/P Pulse Ox O2 Delivery O2 Flow Rate FiO2 11/09/16 16:43 87 16 146/88 100 Status: improved Disposition: ADMITTED INPATIENT Condition: Serious BHAVANI CHAUDHARI D.O. Nov 09, 2016 17:17
[2016-11-09 17:28] VITALS: BP 148/87
[2016-11-09 17:39] LABS: MEAN CORPUSCULAR HEMOGLOBIN 31.4 PG (27.0-31.0); MEAN CORPUSCULAR HGB CONC 36.3 G/DL (32.0-36.0); MEAN CORPUSCULAR VOLUME 86 FL (80-99); MEAN PLATELET VOLUME 8.1 FL (6.5-10.1); PLATELET COUNT 304 K/UL (150-450); RED BLOOD COUNT 5.88 M/UL (4.70-6.10); RED CELL DISTRIBUTION WIDTH 10.7 % (11.6-14.8); WHITE BLOOD COUNT 19.5 K/UL (4.8-10.8)
[2016-11-09 18:01] LABS: ANION GAP 22 (5-15); CALCIUM 10.9 mg/dL (8.6-10.2); CARBON DIOXIDE 24 mEQ/L (20-30); CHLORIDE 94 mEQ/L (98-107); CREATININE 1.3 mg/dL (0.7-1.2); GLOMERULAR FILTRATION RATE > 60 mL/min (>60); HEMOLYSIS 3; LIPASE 11 U/L (< 60); POTASSIUM 3.5 mEQ/L (3.4-4.9); SODIUM 140 mEQ/L (135-145)
[2016-11-09] MEDS ORDERED: HYDROmorphone 2 MG, DiphenhydrAMINE 25 MG in NS 55 ML IVPB ONE (18:30)
[2016-11-09 19:20] VITALS: BP 141/81
[2016-11-09] MEDS ORDERED: DiphenhydrAMINE 50mg/ml Inj ONE (19:28)
[2016-11-09 19:48] LABS: BAND NEUTROPHILS % (MANUAL) 0 % (0-8); BASOPHILS % (MANUAL) 1 % (0-2); EOSINOPHILS % (MANUAL) 1 % (0-3); LYMPHOCYTES % (MANUAL) 19 % (20-45); NEUTROPHILS % (MANUAL) 75 % (45-75); PLATELET ESTIMATE ADEQUATE; TOTAL CELLS COUNTED 100
[2016-11-09 19:49] LABS: PLATELET MORPHOLOGY NORMAL; POLYCHROMASIA 1+
[2016-11-09] MEDS ORDERED: MELATONIN 5 MG1 EAC1 ORAL (20:38)
[2016-11-09] MEDS ORDERED: Miralax 17gm pkt ORAL PRN (21:30)
[2016-11-09] MEDS ORDERED: Nitroglycerin Subl 0.4mg tab (Bottle Of 25) SL PRN (21:30)
[2016-11-09] MEDS ORDERED: Mylanta II UD 30ml ORAL PRN (21:30)
[2016-11-09] MEDS: QUEtiapine 200mg tab ORAL SCH (22:33)
[2016-11-09] MEDS: D5 1/2NS 1,000 ML IV SCH (22:33)
[2016-11-10] VITALS: BP_SYST 148; BP_DIAS 95; BP_DIAS 98
[2016-11-10 04:00] VITALS: BP 140/82
[2016-11-10] MEDS: Morphine Sulfate 2mg/ml Inj IVP PRN ×5 (06:07→22:59)
[2016-11-10 07:39] LABS: BASOPHILS % (AUTO) 0.5 % (0.0-2.0); EOSINOPHILS % (AUTO) 0.2 % (0.0-3.0); LYMPHOCYTES % (AUTO) 19.7 % (20.0-45.0); MEAN CORPUSCULAR HEMOGLOBIN 31.2 PG (27.0-31.0); MEAN CORPUSCULAR HGB CONC 35.4 G/DL (32.0-36.0); MEAN CORPUSCULAR VOLUME 88 FL (80-99); MEAN PLATELET VOLUME 8.7 FL (6.5-10.1); MONOCYTES % (AUTO) 8.9 % (1.0-10.0); NEUTROPHILS % (AUTO) 70.8 % (45.0-75.0); PLATELET COUNT 225 K/UL (150-450); RED BLOOD COUNT 4.75 M/UL (4.70-6.10); RED CELL DISTRIBUTION WIDTH 10.8 % (11.6-14.8); WHITE BLOOD COUNT 10.8 K/UL (4.8-10.8)
[2016-11-10 07:54] LABS: ALANINE AMINOTRANSFERASE 15 U/L (3-41); ALBUMIN/GLOBULIN RATIO 1.4 (1.0-2.7); AMYLASE 45 U/L (10-110); ANION GAP 14 (5-15); ASPARTATE AMINO TRANSFERASE 15 U/L (5-40); CALCIUM 9.1 mg/dL (8.6-10.2); CARBON DIOXIDE 28 mEQ/L (20-30); CHLORIDE 100 mEQ/L (98-107); GLOMERULAR FILTRATION RATE > 60 mL/min (>60); HEMOLYSIS 5; LIPASE 10 U/L (< 60); POTASSIUM 3.4 mEQ/L (3.4-4.9); SODIUM 142 mEQ/L (135-145); TOTAL PROTEIN 6.9 g/dL (6.6-8.7)
[2016-11-10 08:00] VITALS: BP 130/77
[2016-11-10] MEDS: Heparin 5000 units/ml inj SUBQ SCH ×2 (10:18→20:17)
--- NOTE | 2016-11-10 11:18 | GI Initial Consult Note ---
History of Present Illness General Date patient seen: Nov 10, 2016 Time patient seen: 09:00 Reason for Hospitalization: Vomiting Referring physician: ELHAM NEWMAN Reason for Consultation: CYCLIC VOMITTING SYNDROME Present Illness HPI Patient was here yesterday Has also had a recent hospitalization Reports that he has a history of cyclical vomiting Patient reports increased pain and vomiting Unable to tolerate oral intake for the past 2-3 days Denies any fevers or chills Denies any chest pain denies any back or flank pain abdominal pain is diffuse 8/ 10 Denies any diarrhea Denies any recent trauma patient reports pain at several different hospitals including [facility] No one has been able to give a diagnosis GI CONSULT: Initial HPI as noted above. Pt was originally admitted last week for same symptoms. Pt seen on floor awake, A&Ox4 NAD with no active signs of vomiting. Pt currently c/o of constant nausea. The patient denied any marijuana use since his last admission here at [facility]. Utox shows positive for marijuana. Pt was initially hemoconcentrated. CBC, LFTs unremarkable. Home Meds Reported Medications Melatonin (MELATONIN 5 MG TABLET) 1 Each Tablet, 1 TAB ORAL BEDTIME Y for Insomnia, TAB 11/09/16 Glycerin (SUPPOSITORY) 1 Each Supp.rect, 1 EACH RC, SUPP 11/09/16 Ondansetron Odt* (ZOFRAN ODT*) 4 Mg Tab.rapdis, 4 MG ORAL Q6H Y for Nausea & Vomiting, #30 TAB 11/09/16 Quetiapine Fumarate* (SEROQUEL*) 200 Mg Tablet, 300 MG ORAL HS, TAB 05/31/13 Discontinued Scripts Ondansetron Odt* (ZOFRAN ODT*) 4 Mg Tab.rapdis, 4 MG ORAL Q6H Y for Nausea & Vomiting, #30 TAB 0 Refills Prov:OLGA LIDIA TURNER M.D. 11/08/16 Temazepam* (RESTORIL*) 15 Mg Capsule, 15 MG ORAL HSPRN Y for 30 Days, CAP Prov:ELHAM NEWMAN 11/05/16 Ranitidine Hcl* (ZANTAC*) 150 Mg Tablet, 150 MG ORAL TWICE A DAY, #30 TAB Prov:Alejandro (Jossy)Bella SHINGLE INSPECTOR 03/02/15 Hydrocodone Bit/Acetaminophen 5-325* (NORCO 5-325*) 1 Each Tablet, 1 TAB ORAL Q6H Y for For Pain, #20 TAB 0 Refills Prov:Alejandro Sanzsymone,Bella SHINGLE INSPECTOR 11/20/14 Prochlorperazine (Prochlorperazine) 25 Mg Supp, 25 MG RECTAL EVERY 12 HOURS, # 30 SUPP Prov:Alejandro Millard),Bella SHINGLE INSPECTOR 10/20/14 Ondansetron* (ZOFRAN*) 4 Mg Tablet, 4 MG ORAL Q6H Y for Nausea & Vomiting, #60 TAB Prov:Alejandro (Jossy),Bella SHINGLE INSPECTOR 10/20/14 Amitriptyline HCl (ELAVIL*) 25 Mg Tab, 25 MG ORAL BEDTIME, #30 TAB Prov:TRENTMIRALI 10/18/14 Ondansetron (Zofran) 4 Mg Tab, 4 MG ORAL Q8H Y for Nausea & Vomiting, #10 TAB 0 Refills Prov:ZARRABI,MIRALI 10/18/14 Med list reviewed/reconciled: Yes Allergies: Coded Allergies: No Known Allergies (Unverified , 05/31/13) Patient History History Provided By: Patient, Medical Record PMH Narrative Hx Hypertension: No Hx Pacemaker: No Hx Asthma: No Hx COPD: No Hx Diabetes: No Hx Cancer: No Hx Dialysis: No Hx Neurological Problems: No Hx Cerebrovascular Accident: No Hx Seizures: No Hx Head Trauma: Yes Social History: Reports: drug use Review of Systems All Other Systems: negative except mentioned in HPI Physical Exam Vital Signs Date Time Temp Pulse Resp B/P Pulse Ox O2 Delivery O2 Flow Rate FiO2 11/09/16 16:43 87 16 146/88 100 11/09/16 17:28 98.9 Room Air Sp02 EP Interpretation: reviewed Labs Laboratory Tests Test 11/09/16 17:20 11/09/16 19:15 11/10/16 06:50 White Blood Count 19.5 K/UL (4.8-10.8) H 10.8 K/UL (4.8-10.8) Red Blood Count 5.88 M/UL (4.70-6.10) 4.75 M/UL (4.70-6.10) Hemoglobin 18.5 G/DL (14.2-18.0) *H 14.8 G/DL (14.2-18.0) Hematocrit 50.8 % (42.0-52.0) 41.9 % (42.0-52.0) L Mean Corpuscular Volume 86 FL (80-99) 88 FL (80-99) Mean Corpuscular Hemoglobin 31.4 PG (27.0-31.0) H 31.2 PG (27.0-31.0) H Mean Corpuscular Hemoglobin Concent 36.3 G/DL (32.0-36.0) H 35.4 G/DL (32.0-36.0) Red Cell Distribution Width 10.7 % (11.6-14.8) L 10.8 % (11.6-14.8) L Platelet Count 304 K/UL (150-450) 225 K/UL (150-450) Mean Platelet Volume 8.1 FL (6.5-10.1) 8.7 FL (6.5-10.1) Neutrophils (%) (Auto) % (45.0-75.0) 70.8 % (45.0-75.0) Lymphocytes (%) (Auto) % (20.0-45.0) 19.7 % (20.0-45.0) L Monocytes (%) (Auto) % (1.0-10.0) 8.9 % (1.0-10.0) Eosinophils (%) (Auto) % (0.0-3.0) 0.2 % (0.0-3.0) Basophils (%) (Auto) % (0.0-2.0) 0.5 % (0.0-2.0) Differential Total Cells Counted 100 Neutrophils % (Manual) 75 % (45-75) Lymphocytes % (Manual) 19 % (20-45) L Monocytes % (Manual) 4 % (1-10) Eosinophils % (Manual) 1 % (0-3) Basophils % (Manual) 1 % (0-2) Band Neutrophils 0 % (0-8) Platelet Estimate Adequate Platelet Morphology Normal Polychromasia 1+ Sodium Level 140 mEQ/L (135-145) 142 mEQ/L (135-145) Potassium Level 3.5 mEQ/L (3.4-4.9) 3.4 mEQ/L (3.4-4.9) Chloride Level 94 mEQ/L (98-107) L 100 mEQ/L (98-107) Carbon Dioxide Level 24 mEQ/L (20-30) 28 mEQ/L (20-30) Anion Gap 22 (5-15) H 14 (5-15) Blood Urea Nitrogen 17 mg/dL (7-23) 13 mg/dL (7-23) Creatinine 1.3 mg/dL (0.7-1.2) H 1.0 mg/dL (0.7-1.2) Estimat Glomerular Filtration Rate > 60 mL/min (>60) > 60 mL/min (>60) Glucose Level 131 mg/dL (74-106) H 124 mg/dL (74-106) H Calcium Level 10.9 mg/dL (8.6-10.2) H 9.1 mg/dL (8.6-10.2) Lipase 11 U/L (< 60) 10 U/L (< 60) Urine Opiates Screen Negative (NEGATIVE) Urine Barbiturates Screen Negative (NEGATIVE) Phencyclidine (PCP) Screen Negative (NEGATIVE) Urine Amphetamines Screen Negative (NEGATIVE) Urine Benzodiazepines Screen Negative (NEGATIVE) Urine Cocaine Screen Negative (NEGATIVE) Urine Marijuana (THC) Screen Positive (NEGATIVE) H Activated Partial Thromboplast Time 28 SEC (23-33) Total Bilirubin 0.9 mg/dL (0.0-1.2) Aspartate Amino Transf (AST/SGOT) 15 U/L (5-40) Alanine Aminotransferase (ALT/SGPT) 15 U/L (3-41) Alkaline Phosphatase 52 U/L (40-129) Total Protein 6.9 g/dL (6.6-8.7) Albumin 4.1 g/dL (3.5-5.2) Globulin 2.8 g/dL Albumin/Globulin Ratio 1.4 (1.0-2.7) Amylase Level 45 U/L (10-110) General Appearance: normal inspection, well appearing, no apparent distress, alert Head: normocephalic EENT: normal ENT inspection Neck: normal inspection, supple Respiratory: normal inspection, normal breath sounds, no respiratory distress Cardiovascular: normal rate Gastrointestinal: normal inspection, non tender, soft, normal bowel sounds Rectal: normal exam Musculoskeletal: normal inspection Neurologic: alert, oriented x3, responsive Psychiatric: normal inspection Skin: normal inspection, normal color, no rash, warm/dry Lymphatic: normal inspection, no adenopathy Current Medications Current Medications Medications (Trade) Dose Ordered Sig/Adi Route PRN Reason Start Time Stop Time Status Last Admin Dose Admin Acetaminophen (Tylenol) 650 mg Q4H PRN ORAL fever 11/09/16 21:30 12/09/16 21:29 Al Hydroxide/Mg Hydroxide (Mylanta II) 30 ml Q6H PRN ORAL dyspepsia 11/09/16 21:30 12/09/16 21:29 Dextrose (Dextrose 50%) STAT PRN IV Hypoglycemia 11/09/16 21:30 12/09/16 21:29 Dextrose/Sodium Chloride (D5 0.45% NS) 1,000 ml @ 75 mls/hr [id number] IV 11/09/16 22:30 12/09/16 22:29 11/09/16 22:33 Diphenhydramine HCl (Benadryl) 25 mg Q6H PRN ORAL Itching/Pruritis 11/09/16 21:30 12/09/16 21:29 Heparin Sodium (Porcine) (Heparin 5000 units/ml) 5,000 units EVERY 12 HOURS SUBQ 11/10/16 09:00 12/10/16 08:59 11/10/16 10:18 Morphine Sulfate (Morphine Sulfate) 2 mg EVERY 4 HOURS PRN IVP severe Pain (Pain Scale 7-10) 11/09/16 21:30 11/16/16 21:29 11/10/16 10:14 Nitroglycerin (Ntg) 0.4 mg Q5M X 3 DOSES PRN SL Prn Chest Pain 11/09/16 21:30 12/09/16 21:29 Ondansetron HCl (Zofran ODT) 4 mg Q6H PRN ORAL Nausea 11/09/16 21:30 12/09/16 21:29 Ondansetron HCl (Zofran) 4 mg Q6H PRN IVP Vomiting 11/09/16 21:30 12/09/16 21:29 11/10/16 06:06 Polyethylene Glycol (Miralax) 17 gm HSPRN PRN ORAL Constipation 11/09/16 21:30 12/09/16 21:29 Quetiapine Fumarate 300 mg 300 mg QHS ORAL 11/09/16 22:30 12/09/16 22:29 11/09/16 22:33 Temazepam (Restoril) 15 mg HSPRN PRN ORAL Insomnia 11/09/16 21:30 11/16/16 21:29 GI: Plan Problems: (1) Cyclical vomiting syndrome (2) Vomiting (3) Bipolar disorder (4) Drug abuse Plan symptomatic treatment CLD, adv as tolerated zofran prn avoid drug use fu labs Discussed with Dr. Chicas. Thank you for referring this patient, we will follow. Melissa Barney N.P. Nov 10, 2016 11:18
[2016-11-10 12:00] VITALS: BP 109/64
[2016-11-10] MEDS: D5 1/2NS 1,000 ML IV SCH (12:04)
--- NOTE | 2016-11-10 15:29 | History and Physical ---
History of Present Illness General Date patient seen: Nov 10, 2016 Reason for Hospitalization: Vomiting Present Illness HPI 26 year old male with hx of "cyclical vomiting syndrome" with recurrent hospitalization presented to ER with increased pain and vomiting. He was unable to tolerate oral intake for the past 2-3 days Denies any chest pain denies any back or flank pain abdominal pain is diffuse He had a leukocytosis and azotemia in Er and therefore admitted for further work up. Allergies: Coded Allergies: No Known Allergies (Unverified , 05/31/13) Medication History Scheduled Quetiapine Fumarate* (Seroquel*), 300 MG ORAL HS, (Reported) Scheduled PRN Melatonin (Melatonin 5 Mg Tablet), 1 TAB ORAL BEDTIME PRN for Insomnia, ( Reported) Ondansetron Odt* (Zofran Odt*), 4 MG ORAL Q6H PRN for Nausea & Vomiting, ( Reported) Miscellaneous Medications Glycerin (Suppository), 1 EACH RC, (Reported) Discontinued Medications Amitriptyline HCl (Elavil*), 25 MG ORAL BEDTIME Discontinued Reason: Therapy completed Hydrocodone Bit/Acetaminophen 5-325* ([place] 5-325*), 1 TAB ORAL Q6H PRN for For Pain Discontinued Reason: Therapy completed Ondansetron (Zofran), 4 MG ORAL Q8H PRN for Nausea & Vomiting Discontinued Reason: Therapy completed Ondansetron Odt* (Zofran Odt*), 4 MG ORAL Q6H PRN for Nausea & Vomiting Discontinued Reason: Therapy completed Ondansetron* (Zofran*), 4 MG ORAL Q6H PRN for Nausea & Vomiting Discontinued Reason: Therapy completed Prochlorperazine (Prochlorperazine), 25 MG RECTAL EVERY 12 HOURS Discontinued Reason: Therapy completed Ranitidine Hcl* (Zantac*), 150 MG ORAL TWICE A DAY Discontinued Reason: Therapy completed Temazepam* (Restoril*), 15 MG ORAL HSPRN PRN Discontinued Reason: Therapy completed Patient History Healthcare decision maker Resuscitation status Full Code Advanced Directive on File Past Medical/Surgical History Past Medical/Surgical History: (1) Bipolar disorder (2) Drug abuse (3) Cyclical vomiting syndrome Review of Systems All Other Systems: negative except mentioned in HPI Physical Exam General Appearance: cachetic Lines, tubes and drains: peripheral HEENT: normocephalic, anicteric Neck: non-tender, normal alignment Respiratory/Chest: chest wall non-tender, lungs clear Cardiovascular/Chest: normal peripheral pulses, normal rate Abdomen: normal bowel sounds Genitourinary/Rectal: normal genital exam Extremities: normal range of motion Last 24 Hour Vital Signs Date Time Temp Pulse Resp B/P Pulse Ox O2 Delivery O2 Flow Rate FiO2 11/10/16 12:00 97.5 50 21 109/64 100 Room Air 11/10/16 10:44 97.9 11/10/16 08:00 97.9 60 19 130/77 96 Room Air 11/10/16 04:00 97.7 64 18 140/82 100 Room Air 11/10/16 04:00 97.7 64 18 140/82 100 Room Air 11/10/16 00:00 99.3 59 18 148/98 95 Room Air 11/10/16 00:00 99.3 59 18 148/95 95 Room Air 11/09/16 21:00 68 13 125/81 100 Room Air 11/09/16 19:20 70 18 141/81 100 Room Air 11/09/16 17:28 98.9 73 14 148/87 100 Room Air 11/09/16 16:43 87 16 146/88 100 Intake and Output 11/09/16 11/10/16 19:00 07:00 Intake Total 800 ml Balance 800 ml Intake Oral 0 ml IV Total 800 ml # Voids 1 # Bowel Movements 2 Laboratory Tests Test 11/09/16 17:20 11/09/16 19:15 11/10/16 06:50 White Blood Count 19.5 K/UL (4.8-10.8) H 10.8 K/UL (4.8-10.8) Red Blood Count 5.88 M/UL (4.70-6.10) 4.75 M/UL (4.70-6.10) Hemoglobin 18.5 G/DL (14.2-18.0) *H 14.8 G/DL (14.2-18.0) Hematocrit 50.8 % (42.0-52.0) 41.9 % (42.0-52.0) L Mean Corpuscular Volume 86 FL (80-99) 88 FL (80-99) Mean Corpuscular Hemoglobin 31.4 PG (27.0-31.0) H 31.2 PG (27.0-31.0) H Mean Corpuscular Hemoglobin Concent 36.3 G/DL (32.0-36.0) H 35.4 G/DL (32.0-36.0) Red Cell Distribution Width 10.7 % (11.6-14.8) L 10.8 % (11.6-14.8) L Platelet Count 304 K/UL (150-450) 225 K/UL (150-450) Mean Platelet Volume 8.1 FL (6.5-10.1) 8.7 FL (6.5-10.1) Neutrophils (%) (Auto) % (45.0-75.0) 70.8 % (45.0-75.0) Lymphocytes (%) (Auto) % (20.0-45.0) 19.7 % (20.0-45.0) L Monocytes (%) (Auto) % (1.0-10.0) 8.9 % (1.0-10.0) Eosinophils (%) (Auto) % (0.0-3.0) 0.2 % (0.0-3.0) Basophils (%) (Auto) % (0.0-2.0) 0.5 % (0.0-2.0) Differential Total Cells Counted 100 Neutrophils % (Manual) 75 % (45-75) Lymphocytes % (Manual) 19 % (20-45) L Monocytes % (Manual) 4 % (1-10) Eosinophils % (Manual) 1 % (0-3) Basophils % (Manual) 1 % (0-2) Band Neutrophils 0 % (0-8) Platelet Estimate Adequate Platelet Morphology Normal Polychromasia 1+ Sodium Level 140 mEQ/L (135-145) 142 mEQ/L (135-145) Potassium Level 3.5 mEQ/L (3.4-4.9) 3.4 mEQ/L (3.4-4.9) Chloride Level 94 mEQ/L (98-107) L 100 mEQ/L (98-107) Carbon Dioxide Level 24 mEQ/L (20-30) 28 mEQ/L (20-30) Anion Gap 22 (5-15) H 14 (5-15) Blood Urea Nitrogen 17 mg/dL (7-23) 13 mg/dL (7-23) Creatinine 1.3 mg/dL (0.7-1.2) H 1.0 mg/dL (0.7-1.2) Estimat Glomerular Filtration Rate > 60 mL/min (>60) > 60 mL/min (>60) Glucose Level 131 mg/dL (74-106) H 124 mg/dL (74-106) H Calcium Level 10.9 mg/dL (8.6-10.2) H 9.1 mg/dL (8.6-10.2) Lipase 11 U/L (< 60) 10 U/L (< 60) Urine Opiates Screen Negative (NEGATIVE) Urine Barbiturates Screen Negative (NEGATIVE) Phencyclidine (PCP) Screen Negative (NEGATIVE) Urine Amphetamines Screen Negative (NEGATIVE) Urine Benzodiazepines Screen Negative (NEGATIVE) Urine Cocaine Screen Negative (NEGATIVE) Urine Marijuana (THC) Screen Positive (NEGATIVE) H Activated Partial Thromboplast Time 28 SEC (23-33) Total Bilirubin 0.9 mg/dL (0.0-1.2) Aspartate Amino Transf (AST/SGOT) 15 U/L (5-40) Alanine Aminotransferase (ALT/SGPT) 15 U/L (3-41) Alkaline Phosphatase 52 U/L (40-129) Total Protein 6.9 g/dL (6.6-8.7) Albumin 4.1 g/dL (3.5-5.2) Globulin 2.8 g/dL Albumin/Globulin Ratio 1.4 (1.0-2.7) Amylase Level 45 U/L (10-110) Height (Feet): 5 Height (Inches): 8.00 Weight (Pounds): 130 Medications Current Medications Medications (Trade) Dose Ordered Sig/Adi Route PRN Reason Start Time Stop Time Status Last Admin Dose Admin Acetaminophen (Tylenol) 650 mg Q4H PRN ORAL fever 11/09/16 21:30 12/09/16 21:29 Al Hydroxide/Mg Hydroxide (Mylanta II) 30 ml Q6H PRN ORAL dyspepsia 11/09/16 21:30 12/09/16 21:29 Dextrose (Dextrose 50%) STAT PRN IV Hypoglycemia 11/09/16 21:30 12/09/16 21:29 Dextrose/Sodium Chloride (D5 0.45% NS) 1,000 ml @ 75 mls/hr [id number] IV 11/09/16 22:30 12/09/16 22:29 11/10/16 12:04 Diphenhydramine HCl (Benadryl) 25 mg Q6H PRN ORAL Itching/Pruritis 11/09/16 21:30 12/09/16 21:29 Heparin Sodium (Porcine) (Heparin 5000 units/ml) 5,000 units EVERY 12 HOURS SUBQ 11/10/16 09:00 12/10/16 08:59 11/10/16 10:18 Morphine Sulfate (Morphine Sulfate) 2 mg EVERY 4 HOURS PRN IVP severe Pain (Pain Scale 7-10) 11/09/16 21:30 11/16/16 21:29 11/10/16 14:25 Nicotine (Nicoderm) 1 patch Q24H TDERMAL 11/10/16 15:00 12/10/16 14:59 11/10/16 14:25 Nitroglycerin (Ntg) 0.4 mg Q5M X 3 DOSES PRN SL Prn Chest Pain 11/09/16 21:30 12/09/16 21:29 Ondansetron HCl (Zofran ODT) 4 mg Q6H PRN ORAL Nausea 11/09/16 21:30 12/09/16 21:29 Ondansetron HCl (Zofran) 4 mg Q6H PRN IVP Vomiting 11/09/16 21:30 12/09/16 21:29 11/10/16 12:04 Polyethylene Glycol (Miralax) 17 gm HSPRN PRN ORAL Constipation 11/09/16 21:30 12/09/16 21:29 Quetiapine Fumarate 300 mg 300 mg QHS ORAL 11/09/16 22:30 12/09/16 22:29 11/09/16 22:33 Temazepam (Restoril) 15 mg HSPRN PRN ORAL Insomnia 11/09/16 21:30 11/16/16 21:29 Assessment/Plan Problem List: (1) Intractable vomiting ICD Codes: R11.10 - Vomiting, unspecified SNOMED: 550379625 (2) Cyclical vomiting syndrome ICD Codes: G43.A0 - Cyclical vomiting, not intractable SNOMED: 78525851 (3) ARF (acute renal failure) ICD Codes: N17.9 - ARF (acute renal failure) SNOMED: 84300970 (4) Leukocytosis ICD Codes: D72.829 - Elevated white blood cell count, unspecified SNOMED: 992592140 (5) Dehydration ICD Codes: E86.0 - Dehydration SNOMED: 28296912 (6) Drug abuse ICD Codes: F19.10 - Other psychoactive substance abuse, uncomplicated SNOMED: 69591511 Assessment/Plan npo IV hydration GI evaluaiton f/u wbc, and electrolytes GI evaluation ELHAM NEWMAN Nov 10, 2016 15:29
[2016-11-10 16:00] VITALS: BP 113/63
[2016-11-10 19:00] VITALS: BP 108/67
[2016-11-10] MEDS: QUEtiapine 200mg tab ORAL SCH (20:16)
[2016-11-11] VITALS (7 sets, daily range): BP systolic 85–134; BP diastolic 44–74
[2016-11-11] MEDS: D5 1/2NS 1,000 ML IV SCH ×2 (01:24→14:30)
[2016-11-11] MEDS: Morphine Sulfate 2mg/ml Inj IVP PRN ×4 (03:25→19:30)
[2016-11-11 06:33] LABS: BASOPHILS % (AUTO) 0.8 % (0.0-2.0); EOSINOPHILS % (AUTO) 0.6 % (0.0-3.0); LYMPHOCYTES % (AUTO) 17.5 % (20.0-45.0); MEAN CORPUSCULAR HEMOGLOBIN 31.4 PG (27.0-31.0); MEAN CORPUSCULAR HGB CONC 35.1 G/DL (32.0-36.0); MEAN CORPUSCULAR VOLUME 90 FL (80-99); MEAN PLATELET VOLUME 8.7 FL (6.5-10.1); MONOCYTES % (AUTO) 4.6 % (1.0-10.0); NEUTROPHILS % (AUTO) 76.6 % (45.0-75.0); PLATELET COUNT 224 K/UL (150-450); RED BLOOD COUNT 4.77 M/UL (4.70-6.10); RED CELL DISTRIBUTION WIDTH 11.1 % (11.6-14.8); WHITE BLOOD COUNT 13.3 K/UL (4.8-10.8)
[2016-11-11 07:01] LABS: ANION GAP 24 (5-15); CALCIUM 9.4 mg/dL (8.6-10.2); CARBON DIOXIDE 18 mEQ/L (20-30); CHLORIDE 96 mEQ/L (98-107); CREATININE 1.1 mg/dL (0.7-1.2); GLOMERULAR FILTRATION RATE > 60 mL/min (>60); HEMOLYSIS 7; POTASSIUM 3.2 mEQ/L (3.4-4.9); SODIUM 138 mEQ/L (135-145)
[2016-11-11] MEDS: Heparin 5000 units/ml inj SUBQ SCH ×2 (08:58→20:19)
--- NOTE | 2016-11-11 10:38 | GI Progress Note ---
Assessment/Plan Problems: (1) Abdominal wall pain ICD Codes: R10.9 - Unspecified abdominal pain SNOMED: 223382993 (2) Bipolar disorder ICD Codes: F31.9 - Bipolar disorder, unspecified SNOMED: 02083448 (3) Drug abuse ICD Codes: F19.10 - Other psychoactive substance abuse, uncomplicated SNOMED: 54493167 (4) Cyclical vomiting syndrome ICD Codes: G43.A0 - Cyclical vomiting, not intractable SNOMED: 73341465 (5) Vomiting ICD Codes: R11.10 - Vomiting, unspecified SNOMED: 220665494 Status: stable Status Narrative Discussed with Dr. Chicas. Assessment/Plan ok for DC per GI standpoint if patient tolerates lunch symptomatic treatment regular diet zofran prn avoid drug use tobacco cessation education given fu labs Subjective Gastrointestinal/Abdominal: Reports: no symptoms Subjective feels better Objective Last 24 Hour Vital Signs Date Time Temp Pulse Resp B/P Pulse Ox O2 Delivery O2 Flow Rate FiO2 11/11/16 08:15 98.0 101 21 126/74 97 Room Air 11/11/16 04:00 96.8 56 18 132/72 99 Room Air 11/11/16 00:00 97.7 61 18 85/44 97 Room Air 11/10/16 19:00 97.9 50 18 108/67 18 Room Air 11/10/16 16:00 97.9 53 20 113/63 98 Room Air 11/10/16 14:55 97.5 11/10/16 12:00 97.5 50 21 109/64 100 Room Air Intake and Output 11/10/16 11/11/16 18:59 06:59 Intake Total 1140 ml 1470 ml Balance 1140 ml 1470 ml Intake Oral 240 ml 720 ml IV Total 900 ml 750 ml # Voids 1 10 Laboratory Tests Test 11/11/16 05:45 White Blood Count 13.3 K/UL (4.8-10.8) H Red Blood Count 4.77 M/UL (4.70-6.10) Hemoglobin 15.0 G/DL (14.2-18.0) Hematocrit 42.7 % (42.0-52.0) Mean Corpuscular Volume 90 FL (80-99) Mean Corpuscular Hemoglobin 31.4 PG (27.0-31.0) H Mean Corpuscular Hemoglobin Concent 35.1 G/DL (32.0-36.0) Red Cell Distribution Width 11.1 % (11.6-14.8) L Platelet Count 224 K/UL (150-450) Mean Platelet Volume 8.7 FL (6.5-10.1) Neutrophils (%) (Auto) 76.6 % (45.0-75.0) H Lymphocytes (%) (Auto) 17.5 % (20.0-45.0) L Monocytes (%) (Auto) 4.6 % (1.0-10.0) Eosinophils (%) (Auto) 0.6 % (0.0-3.0) Basophils (%) (Auto) 0.8 % (0.0-2.0) Sodium Level 138 mEQ/L (135-145) Potassium Level 3.2 mEQ/L (3.4-4.9) L Chloride Level 96 mEQ/L (98-107) L Carbon Dioxide Level 18 mEQ/L (20-30) L Anion Gap 24 (5-15) H Blood Urea Nitrogen 13 mg/dL (7-23) Creatinine 1.1 mg/dL (0.7-1.2) Estimat Glomerular Filtration Rate > 60 mL/min (>60) Glucose Level 84 mg/dL (74-106) Calcium Level 9.4 mg/dL (8.6-10.2) Height (Feet): 5 Height (Inches): 8.00 Weight (Pounds): 130 General Appearance: no apparent distress, alert, thin Cardiovascular: normal rate Respiratory/Chest: normal breath sounds, no respiratory distress Abdominal Exam: normal bowel sounds, non tender, soft Extremities: normal range of motion Melissa Barney N.P. Nov 11, 2016 10:38
--- NOTE | 2016-11-11 17:12 | Pulmonology Progress Note ---
Assessment/Plan Problems: (1) Intractable vomiting (2) Cyclical vomiting syndrome (3) ARF (acute renal failure) (4) Leukocytosis (5) Dehydration (6) Drug abuse Assessment/Plan improivng advance diet continue pain meds dc in am Subjective Interval Events: feeling slightly better, tolerated diet partially Allergies: Coded Allergies: No Known Allergies (Unverified , 05/31/13) Objective Last 24 Hour Vital Signs Date Time Temp Pulse Resp B/P Pulse Ox O2 Delivery O2 Flow Rate FiO2 11/11/16 16:00 96.8 59 18 108/58 100 Room Air 11/11/16 11:43 98.3 70 19 134/54 95 Room Air 11/11/16 10:35 98.0 11/11/16 08:15 98.0 101 21 126/74 97 Room Air 11/11/16 04:00 96.8 56 18 132/72 99 Room Air 11/11/16 00:00 97.7 61 18 85/44 97 Room Air 11/10/16 19:00 97.9 50 18 108/67 18 Room Air Intake and Output 11/10/16 11/11/16 19:00 07:00 Intake Total 1215 ml 1395 ml Balance 1215 ml 1395 ml Intake Oral 240 ml 720 ml IV Total 975 ml 675 ml # Voids 1 10 General Appearance: WD/WN HEENT: normocephalic Respiratory/Chest: chest wall non-tender, lungs clear Cardiovascular: normal peripheral pulses, normal rate Abdomen: normal bowel sounds, soft, non tender Extremities: no cyanosis Skin: no rash Laboratory Tests 11/11/16 05:45: White Blood Count 13.3H, Red Blood Count 4.77, Hemoglobin 15.0, Hematocrit 42.7 , Mean Corpuscular Volume 90, Mean Corpuscular Hemoglobin 31.4H, Mean Corpuscular Hemoglobin Concent 35.1, Red Cell Distribution Width 11.1L, Platelet Count 224, Mean Platelet Volume 8.7, Neutrophils (%) (Auto) 76.6H, Lymphocytes (%) (Auto) 17.5L, Monocytes (%) (Auto) 4.6, Eosinophils (%) (Auto) 0.6, Basophils (%) (Auto) 0.8, Sodium Level 138, Potassium Level 3.2L, Chloride Level 96L, Carbon Dioxide Level 18L, Anion Gap 24H, Blood Urea Nitrogen 13, Creatinine 1.1, Estimat Glomerular Filtration Rate > 60, Glucose Level 84, Calcium Level 9.4 Current Medications Medications (Trade) Dose Ordered Sig/Adi Route PRN Reason Start Time Stop Time Status Last Admin Dose Admin Acetaminophen (Tylenol) 650 mg Q4H PRN ORAL fever 11/09/16 21:30 12/09/16 21:29 Al Hydroxide/Mg Hydroxide (Mylanta II) 30 ml Q6H PRN ORAL dyspepsia 11/09/16 21:30 12/09/16 21:29 Dextrose (Dextrose 50%) STAT PRN IV Hypoglycemia 11/09/16 21:30 12/09/16 21:29 Dextrose/Sodium Chloride (D5 0.45% NS) 1,000 ml @ 75 mls/hr [id number] IV 11/09/16 22:30 12/09/16 22:29 11/11/16 01:24 Diphenhydramine HCl (Benadryl) 25 mg Q6H PRN ORAL Itching/Pruritis 11/09/16 21:30 12/09/16 21:29 Heparin Sodium (Porcine) (Heparin 5000 units/ml) 5,000 units EVERY 12 HOURS SUBQ 11/10/16 09:00 12/10/16 08:59 11/11/16 08:58 Morphine Sulfate (Morphine Sulfate) 2 mg EVERY 4 HOURS PRN IVP severe Pain (Pain Scale 7-10) 11/09/16 21:30 11/16/16 21:29 11/11/16 15:14 Nicotine (Nicoderm) 1 patch Q24H TDERMAL 11/10/16 15:00 12/10/16 14:59 11/11/16 15:14 Nitroglycerin (Ntg) 0.4 mg Q5M X 3 DOSES PRN SL Prn Chest Pain 11/09/16 21:30 12/09/16 21:29 Ondansetron HCl (Zofran ODT) 4 mg Q6H PRN ORAL Nausea 11/09/16 21:30 12/09/16 21:29 Ondansetron HCl (Zofran) 4 mg Q6H PRN IVP Vomiting 11/09/16 21:30 12/09/16 21:29 11/11/16 10:05 Polyethylene Glycol (Miralax) 17 gm HSPRN PRN ORAL Constipation 11/09/16 21:30 12/09/16 21:29 Quetiapine Fumarate 300 mg 300 mg QHS ORAL 11/09/16 22:30 12/09/16 22:29 11/10/16 20:16 Temazepam (Restoril) 15 mg HSPRN PRN ORAL Insomnia 11/09/16 21:30 11/16/16 21:29 ELHAM NEWMAN Nov 11, 2016 17:12
[2016-11-11] MEDS: QUEtiapine 200mg tab ORAL SCH (20:18)
[2016-11-12 03:42] VITALS: BP 109/52
[2016-11-12] MEDS: D5 1/2NS 1,000 ML IV SCH (03:50)
[2016-11-12 06:57] LABS: BASOPHILS % (AUTO) 1.2 % (0.0-2.0); EOSINOPHILS % (AUTO) 2.5 % (0.0-3.0); MEAN CORPUSCULAR HEMOGLOBIN 31.1 PG (27.0-31.0); MEAN CORPUSCULAR VOLUME 89 FL (80-99); MEAN PLATELET VOLUME 8.2 FL (6.5-10.1); MONOCYTES % (AUTO) 8.4 % (1.0-10.0); NEUTROPHILS % (AUTO) 49.9 % (45.0-75.0); PLATELET COUNT 195 K/UL (150-450); RED BLOOD COUNT 4.52 M/UL (4.70-6.10); RED CELL DISTRIBUTION WIDTH 10.8 % (11.6-14.8); WHITE BLOOD COUNT 6.3 K/UL (4.8-10.8)
[2016-11-12 07:17] LABS: ANION GAP 11 (5-15); CALCIUM 8.8 mg/dL (8.6-10.2); CARBON DIOXIDE 25 mEQ/L (20-30); CHLORIDE 103 mEQ/L (98-107); GLOMERULAR FILTRATION RATE > 60 mL/min (>60); HEMOLYSIS 5; POTASSIUM 3.8 mEQ/L (3.4-4.9); SODIUM 139 mEQ/L (135-145)
[2016-11-12 08:15] VITALS: BP 147/66
[2016-11-12] MEDS: Morphine Sulfate 2mg/ml Inj IVP PRN (08:35)
[2016-11-12] MEDS: Heparin 5000 units/ml inj SUBQ SCH (08:36)
--- NOTE | 2016-11-12 10:26 | GI Progress Note ---
Assessment/Plan Problems: (1) Abdominal wall pain ICD Codes: R10.9 - Unspecified abdominal pain SNOMED: 195127320 (2) Bipolar disorder ICD Codes: F31.9 - Bipolar disorder, unspecified SNOMED: 41945764 (3) Drug abuse ICD Codes: F19.10 - Other psychoactive substance abuse, uncomplicated SNOMED: 05494060 (4) Cyclical vomiting syndrome ICD Codes: G43.A0 - Cyclical vomiting, not intractable SNOMED: 25928329 (5) Vomiting ICD Codes: R11.10 - Vomiting, unspecified SNOMED: 654850220 Status: stable Status Narrative Discussed with Dr. Chicas. Assessment/Plan ok for DC per GI standpoint symptomatic treatment regular diet, tolerating zofran prn avoid drug use tobacco cessation education given Subjective Gastrointestinal/Abdominal: Reports: no symptoms Subjective feels better Objective Last 24 Hour Vital Signs Date Time Temp Pulse Resp B/P Pulse Ox O2 Delivery O2 Flow Rate FiO2 11/12/16 08:15 97.6 86 20 147/66 96 Room Air 11/12/16 03:42 97.2 71 19 109/52 100 Room Air 11/11/16 23:58 97.3 84 19 94/61 97 Room Air 11/11/16 20:00 97.9 66 18 126/63 100 Room Air 11/11/16 16:00 96.8 59 18 108/58 100 Room Air 11/11/16 11:43 98.3 70 19 134/54 95 Room Air 11/11/16 10:35 98.0 Intake and Output 11/11/16 11/12/16 19:00 07:00 Intake Total 915 ml 300 ml Output Total 0 ml Balance 915 ml 300 ml Intake Oral 240 ml 300 ml IV Total 675 ml Output Urine Total 0 ml Laboratory Tests Test 11/12/16 06:30 White Blood Count 6.3 K/UL (4.8-10.8) # Red Blood Count 4.52 M/UL (4.70-6.10) L Hemoglobin 14.1 G/DL (14.2-18.0) L Hematocrit 40.2 % (42.0-52.0) L Mean Corpuscular Volume 89 FL (80-99) Mean Corpuscular Hemoglobin 31.1 PG (27.0-31.0) H Mean Corpuscular Hemoglobin Concent 35.0 G/DL (32.0-36.0) Red Cell Distribution Width 10.8 % (11.6-14.8) L Platelet Count 195 K/UL (150-450) Mean Platelet Volume 8.2 FL (6.5-10.1) Neutrophils (%) (Auto) 49.9 % (45.0-75.0) Lymphocytes (%) (Auto) 38.0 % (20.0-45.0) Monocytes (%) (Auto) 8.4 % (1.0-10.0) Eosinophils (%) (Auto) 2.5 % (0.0-3.0) Basophils (%) (Auto) 1.2 % (0.0-2.0) Sodium Level 139 mEQ/L (135-145) Potassium Level 3.8 mEQ/L (3.4-4.9) Chloride Level 103 mEQ/L (98-107) Carbon Dioxide Level 25 mEQ/L (20-30) Anion Gap 11 (5-15) Blood Urea Nitrogen 11 mg/dL (7-23) Creatinine 1.0 mg/dL (0.7-1.2) Estimat Glomerular Filtration Rate > 60 mL/min (>60) Glucose Level 81 mg/dL (74-106) Calcium Level 8.8 mg/dL (8.6-10.2) Height (Feet): 5 Height (Inches): 8.00 Weight (Pounds): 130 General Appearance: no apparent distress, alert Cardiovascular: normal rate Respiratory/Chest: normal breath sounds, no respiratory distress Abdominal Exam: normal bowel sounds, non tender, soft Extremities: normal range of motion Objective pt showered this morning Melissa Barney N.P. Nov 12, 2016 10:26
[2016-11-12] MEDS ORDERED: NORCO 10-325 T1 EACH ORAL (11:19)
[2016-11-12] MEDS ORDERED: NS 55ml IV ONE (11:55)
[2016-11-12] MEDS ORDERED: D5 1/2NS 1000ml IV ONE (11:55)
--- NOTE | 2016-11-12 18:12 | Pulmonology Progress Note ---
Assessment/Plan Problems: (1) Intractable vomiting (2) Cyclical vomiting syndrome (3) ARF (acute renal failure) (4) Leukocytosis (5) Dehydration (6) Drug abuse Assessment/Plan improivng advance diet continue pain meds dc in am Subjective ROS Limited/Unobtainable: No Gastrointestinal/Abdominal: Reports: bloating, nausea, vomiting Allergies: Coded Allergies: No Known Allergies (Unverified , 05/31/13) Objective Last 24 Hour Vital Signs Date Time Temp Pulse Resp B/P Pulse Ox O2 Delivery O2 Flow Rate FiO2 11/12/16 09:05 97.2 11/12/16 08:15 97.6 86 20 147/66 96 Room Air 11/12/16 03:42 97.2 71 19 109/52 100 Room Air 11/11/16 23:58 97.3 84 19 94/61 97 Room Air 11/11/16 20:00 97.9 66 18 126/63 100 Room Air Intake and Output 11/11/16 11/12/16 19:00 07:00 Intake Total 915 ml 300 ml Output Total 0 ml Balance 915 ml 300 ml Intake Oral 240 ml 300 ml IV Total 675 ml Output Urine Total 0 ml General Appearance: no acute distress HEENT: normocephalic, atraumatic, mucous membranes moist Respiratory/Chest: chest wall non-tender Cardiovascular: normal peripheral pulses, no JVD Abdomen: normal bowel sounds, soft, non tender, no organomegaly Genitourinary: normal external genitalia Extremities: no cyanosis Neurologic/Psychiatric: shank cutter II-XII grossly normal, no motor/sensory deficits Microbiology Date/Time Source Procedure Growth Status 11/09/16 20:14 Nasal Nares MRSA Culture - Final NO METHICILLIN RESISTANT STAPH AUREUS... Complete 11/09/16 20:14 Rectum VRE Culture - Final NO VANCOMYCIN RESISTANT ENTEROCOCCUS ... Complete Laboratory Tests 11/12/16 06:30: White Blood Count 6.3#, Red Blood Count 4.52L, Hemoglobin 14.1L, Hematocrit 40.2L, Mean Corpuscular Volume 89, Mean Corpuscular Hemoglobin 31.1H, Mean Corpuscular Hemoglobin Concent 35.0, Red Cell Distribution Width 10.8L, Platelet Count 195, Mean Platelet Volume 8.2, Neutrophils (%) (Auto) 49.9, Lymphocytes (%) (Auto) 38.0, Monocytes (%) (Auto) 8.4, Eosinophils (%) (Auto) 2.5, Basophils (%) (Auto) 1.2, Sodium Level 139, Potassium Level 3.8, Chloride Level 103, Carbon Dioxide Level 25, Anion Gap 11, Blood Urea Nitrogen 11, Creatinine 1.0, Estimat Glomerular Filtration Rate > 60, Glucose Level 81, Calcium Level 8.8 ELHAM NEWMAN Nov 12, 2016 18:12
--- NOTE | 2016-11-13 13:02 | Discharge Summary ---
Discharge Summary Hospital Course Date of Admission Nov 09, 2016 at 18:40 Date of Discharge Nov 12, 2016 at 11:56 Admitting Diagnosis intractable vomiting HPI Jose Elias Lackey is a 26 year old male who was admitted on Nov 09, 2016 at 18:40 for Intractable Vomiting Hospital Course [id number] Discharge Discharge Disposition Patient was discharged to Home (01) Discharge Diagnoses: Hien Baird NP Nov 13, 2016 13:02
--- NOTE | 2016-11-14 03:47 | Discharge Summary 2 SIG ---
DATE OF ADMISSION: 11/09/2016 DATE OF DISCHARGE: 11/12/2016 EDITOR PUBLICATIONS: Gino Chicas M.D. BRIEF HOSPITAL COURSE: The patient is a 26-year-old male with history of cyclic vomiting syndrome with recurrent hospitalization presented to ED complaining of increased pain and vomiting. He was unable to tolerate anything orally for the past two to three days and also has abdominal pain, which is diffuse 8/10. On evaluation at ED, had workup that showed leukocytosis and azotemia. The patient was admitted for further workup. He was given IV hydration and was initially placed on NPO. GI, Dr. Chicas was consulted. Urine toxicology was positive for marijuana. CBC and LFTs were unremarkable. Amylase and lipase were normal. Diet was eventually advanced. He was given symptomatic treatment. He was given Zofran p.r.n. and instructed on avoidance of drug use and tobacco cessation. He was tolerating diet well and the patient was eventually discharged home. FINAL DIAGNOSES: 1. Intractable vomiting. 2. Cyclic vomiting syndrome. 3. Acute renal failure. 4. Dehydration. 5. Marijuana use. Marcos Mcmahon M.D. I have been assigned to dictate discharge summary on this account and I was not involved in the patient's management. Hien Baird N.P. DR: Juan JOB#: [id number] CC: GLORIA
== END 2016-11-12 11:56 | disposition home or self-care (01) | DRG 684 ==
LOC: EDBD 16:47 → EMR 18:30 → 4E 18:40 → EDBEDREQ 20:36
DX: N17.9 Acute kidney failure, unspecified (principal); E86.0 Dehydration; G43.A0 Cyclical vomiting, in migraine, not intractable; F31.9 Bipolar disorder, unspecified; F12.90 Cannabis use, unspecified, uncomplicated
CPT/HCPCS: 36415; 76700; 80048; 80053; 80300; 82150; 83690; 85007; 85025; 85730; 87081; J2405; J2765; J8499